=== PATIENT | female | born 1955 | race African-American/Black ===

== ENCOUNTER 2016-08-31 12:18 | Emergency (ER) | payer MEDICARE, OTHER ==
[~2016-08-31] VITALS: Ht 170.2 cm; Wt 82.1 kg
[~2016-08-31 12:18] MED LIST: ALBUTEROL SULF8.5 GM INH; ALPRAZOLAM0.5 MG PO; AMLODIPINE BESY10 MG ORAL; AMLODIPINE BESYL5 MG ORAL; AMOXICILLIN500 MG ORAL; ARMOUR THYROID120 MG PO; ATENOLOL50 MG ORAL; AZITHROMYCIN250 MG ORAL; CYCLOBENZAPRINE10 MG ORAL; HYDROCODON-ACE1 EA15 ORAL; IBUPROFEN600 MG ORAL; LISINOPRIL10 MG ORAL; LISINOPRIL5 MG ORAL; MELATONIN MC; MORPHINE IR15 MG ORAL; NORCO 10/3251 EA ORAL; NORCO 5-325 TA1 EACH PO; NORCO1 EA ORAL; PEPCID20 MG ORAL; PERCOCET 5-3251 EACH ORAL; PERCOCET 5-3251 EACH PO; SOMA350 MG PO; TESSALON PERLE100 MG ORAL; VALIUM5 MG PO; [UNRECOGNIZED DRUG - OTHER] TP
--- NOTE | 2016-08-31 13:05 | Emergency Room Report ---
History of Present Illness General Chief Complaint: Abdominal Pain Source: Patient Present Illness HPI 61-year-old female presents to emergency Department complaining of intermittent 6/10 in severity localized epigastric pain times one month. Patient states that she would experience the pain every few days however recently has become more frequent to daily. Patient reports that she also has a history of acid reflux and was told that she has an abdominal hernia. Patient denies erythema, consistent pain or increased temperature to palpation of the abdomen. Denies blood in stool, or dark tarry stools. Patient denies vomiting, fevers, chills, constipation or diarrhea. Patient does report intermittent nausea and acid reflux, and has to sleep with head significantly elevated to reduce reflux. denies cardiac hx, or edema. Denies CP, Palpitations, LOC, AMS, dizziness, Changes in Vision, Sensation, paresthesias, or a sudden severe headache. Allergies: Coded Allergies: No Known Allergies (Unverified , 10/04/12) Patient History Past Medical History: see triage record Past Surgical History: none Pertinent Family History: none Last Menstrual Period: menopause Now: No Immunizations: UTD Reviewed Nursing Documentation: PMH: Agreed, PSxH: Agreed Nursing Documentation-PMH Past Medical History: No History, Except For Hx Hypertension: Yes Hx Pacemaker: No Hx Asthma: Yes Hx COPD: No - Left foot fracture Hx Diabetes: No Hx Cancer: No Hx Gastrointestinal Problems: Yes Hx Dialysis: No History Of Psychiatric Problem: Yes - Manic depression, Bipolar Hx Cerebrovascular Accident: No Hx Seizures: No Review of Systems All Other Systems: negative except mentioned in HPI Physical Exam Vital Signs Date Time Temp Pulse Resp B/P Pulse Ox O2 Delivery O2 Flow Rate FiO2 08/31/16 12:28 98.2 76 16 192/96 96 Room Air Sp02 EP Interpretation: reviewed, abnormal - elevated BP- pt non-compliant with medications General Appearance: no apparent distress, alert, GCS 15, non-toxic Head: normocephalic, atraumatic Eyes: bilateral eye PERRL, bilateral eye normal inspection ENT: hearing grossly normal, normal pharynx, no angioedema, normal voice Neck: full range of motion, supple/symm/no masses Respiratory: chest non-tender, lungs clear, normal breath sounds, speaking full sentences Cardiovascular #1: regular rate, rhythm, no edema Gastrointestinal: normal bowel sounds, non tender, soft, no guarding, no pulsatile mass, no rebound, other - Negative [place] signs, Negative MacBurney' s sign, Negative Rosvigns Sign, Negative Psoas, No Peritoneal signs. No pulsatile masses, no palpable hernias, no erythema or evidence of infeciton or suspicion of gangrene/strangulation. normoactive bowel sounds. Rectal: deferred Genitourinary: normal inspection, no CVA tenderness Musculoskeletal: back normal, gait/station normal, normal range of motion, non- tender, no calf tenderness Neurologic: alert, oriented x3, responsive, motor strength/tone normal, sensory intact, speech normal Psychiatric: judgement/insight normal, memory normal, mood/affect normal, no suicidal/homicidal ideation Skin: normal color, no rash, warm/dry, well hydrated Lymphatic: no adenopathy Medical Decision Making PA Attestation Dr. Washburn is my supervising Physician whom patient management has been discussed with. Diagnostic Impression: Primary Impression: Abdominal pain Qualified Codes: R10.13 - Epigastric pain Additional Impressions: History of gastroesophageal reflux (GERD) History of abdominal hernia ER Course 61-year-old female presents to emergency Department complaining of intermittent 6/10 in severity localized epigastric pain times one month. Patient states that she would experience the pain every few days however recently has become more frequent to daily. Patient reports that she also has a history of acid reflux and was told that she has an abdominal hernia. Patient denies erythema, consistent pain or increased temperature to palpation of the abdomen. Denies blood in stool, or dark tarry stools. Patient denies vomiting, fevers, chills, constipation or diarrhea. Patient does report intermittent nausea and acid reflux. Pt has Pmhx of HTN, takes atenolol. is prescribed HCTZ however states she does not take it regularly as she does not like having to frequent the restroom. Ddx considered but are not limited to Diverticulitis, acute appy, diarrhea,UC, PUD, GE, pancreatitis, gallstone Vital signs:pt. is afebrile, BP is elevated. H&PE are most consistent with acid reflux, and possible ulcer, no evidence of strangulation, no evidence of irreducible hernia. ORDERS: CBC, CMP, lipase: ED INTERVENTIONS: -Zantac 150mg - Zofran 4mg. -GI Cocktail -PT states pain has completely subsided with above interventions. -D/w pt. to take all prescribed HTN medications as prescribed by her PCP, and encouraged her to keep a log of BP readings at home to bring with her to her follow up appt with her PCP. I do not suspect an emergent condition at this time. with current presentation pt. is stable for close outpatient follow up. DISCHARGE: At this time pt. is stable for d/c to home. Will provide printed patient care instructions, and any necessary prescriptions. Care plan and follow up instructions have been discussed with the patient prior to discharge. Labs Test 08/31/16 13:48 White Blood Count 6.7 K/UL (4.8-10.8) Red Blood Count 5.08 M/UL (4.20-5.40) Hemoglobin 15.4 G/DL (12.0-16.0) Hematocrit 46.1 % (37.0-47.0) Mean Corpuscular Volume 91 FL (80-99) Mean Corpuscular Hemoglobin 30.2 PG (27.0-31.0) Mean Corpuscular Hemoglobin Concent 33.3 G/DL (32.0-36.0) Red Cell Distribution Width 12.8 % (11.6-14.8) Platelet Count 263 K/UL (150-450) Mean Platelet Volume 9.8 FL (6.5-10.1) Neutrophils (%) (Auto) 56.5 % (45.0-75.0) Lymphocytes (%) (Auto) 36.7 % (20.0-45.0) Monocytes (%) (Auto) 3.7 % (1.0-10.0) Eosinophils (%) (Auto) 2.2 % (0.0-3.0) Basophils (%) (Auto) 0.9 % (0.0-2.0) Sodium Level 143 mEQ/L (135-145) Potassium Level 4.1 mEQ/L (3.4-4.9) Chloride Level 100 mEQ/L (98-107) Carbon Dioxide Level 26 mEQ/L (20-30) Anion Gap 17 (5-15) Blood Urea Nitrogen 17 mg/dL (7-23) Creatinine 0.9 mg/dL (0.5-0.9) Estimat Glomerular Filtration Rate > 60 mL/min (>60) Glucose Level 91 mg/dL (74-106) Calcium Level 9.8 mg/dL (8.6-10.2) Total Bilirubin 0.2 mg/dL (0.0-1.2) Aspartate Amino Transf (AST/SGOT) 27 U/L (5-40) Alanine Aminotransferase (ALT/SGPT) 27 U/L (3-33) Alkaline Phosphatase 81 U/L (35-104) Total Protein 7.4 g/dL (6.6-8.7) Albumin 4.5 g/dL (3.5-5.2) Globulin 2.9 g/dL Albumin/Globulin Ratio 1.5 (1.0-2.7) Lipase 30 U/L (< 60) Last Vital Signs Date Time Temp Pulse Resp B/P Pulse Ox O2 Delivery O2 Flow Rate FiO2 08/31/16 12:28 98.2 76 16 192/96 96 Room Air Disposition: HOME, SELF-CARE Condition: Stable Scripts Mag Hydrox/Al Hydrox/Simeth (ALUM-MAG HYDROXIDE-SIMETH LIQ) 360 Ml Oral.susp 10 ML PO BID, #360 ML Prov: Lucy Farmer 08/31/16 Ondansetron Odt* (ZOFRAN ODT*) 4 Mg Tab.rapdis 4 MG ORAL Q6H Y for Nausea & Vomiting, #20 TAB Prov: Lucy Farmer 08/31/16 Ranitidine Hcl* (ZANTAC*) 150 Mg Tablet 150 MG ORAL TWICE A DAY for 30 Days, #60 TAB Prov: Lucy Farmer 08/31/16 Patient Instructions: Abdominal Pain, Adult Additional Instructions: Take medications as directed. * Take previously prescribed BP medications exactly as prescribed * Follow up with PCP in 3-5 days, Recommend GI Specialist Consultation. -Take BP measurements at home and keep a log. Return sooner to ED if new symptoms occur, or current symptoms become worse. - Please note that this Emergency Department Report was dictated using [employer] technician technology software, occasionally this can lead to erroneous entry secondary to interpretation by the dictation equipment. Lucy Farmer Aug 31, 2016 13:05
[2016-08-31] MEDS ORDERED: Dicyclomine HCl 10mg/5ml oral soln ORAL ONE (13:15)
[2016-08-31] MEDS ORDERED: Mylanta II UD 30ml ORAL ONE (13:15)
[2016-08-31] MEDS ORDERED: Lidocaine 2% Visc 15ml soln ORAL ONE (13:15)
[2016-08-31 14:11] LABS: BASOPHILS % (AUTO) 0.9 % (0.0-2.0); EOSINOPHILS % (AUTO) 2.2 % (0.0-3.0); LYMPHOCYTES % (AUTO) 36.7 % (20.0-45.0); MEAN CORPUSCULAR HEMOGLOBIN 30.2 PG (27.0-31.0); MEAN CORPUSCULAR HGB CONC 33.3 G/DL (32.0-36.0); MEAN CORPUSCULAR VOLUME 91 FL (80-99); MEAN PLATELET VOLUME 9.8 FL (6.5-10.1); MONOCYTES % (AUTO) 3.7 % (1.0-10.0); NEUTROPHILS % (AUTO) 56.5 % (45.0-75.0); PLATELET COUNT 263 K/UL (150-450); RED BLOOD COUNT 5.08 M/UL (4.20-5.40); RED CELL DISTRIBUTION WIDTH 12.8 % (11.6-14.8); WHITE BLOOD COUNT 6.7 K/UL (4.8-10.8)
[2016-08-31 14:30] LABS: ALANINE AMINOTRANSFERASE 27 U/L (3-33); ALBUMIN/GLOBULIN RATIO 1.5 (1.0-2.7); ANION GAP 17 (5-15); ASPARTATE AMINO TRANSFERASE 27 U/L (5-40); CALCIUM 9.8 mg/dL (8.6-10.2); CARBON DIOXIDE 26 mEQ/L (20-30); CHLORIDE 100 mEQ/L (98-107); CREATININE 0.9 mg/dL (0.5-0.9); GLOMERULAR FILTRATION RATE > 60 mL/min (>60); HEMOLYSIS 104; LIPASE 30 U/L (< 60); POTASSIUM 4.1 mEQ/L (3.4-4.9); SODIUM 143 mEQ/L (135-145); TOTAL PROTEIN 7.4 g/dL (6.6-8.7)
[2016-08-31 14:42] VITALS: BP 180/107
[2016-08-31] MEDS ORDERED: ZOFRAN ODT4 MG ORAL (14:47)
[2016-08-31] MEDS ORDERED: ZANTAC150 MG ORAL (14:47)
[2016-08-31] MEDS ORDERED: ALUM-MAG HYDRO360 ML PO (14:47)
[2016-08-31 15:28] VITALS: BP 188/92
[2016-08-31 15:32] VITALS: BP 188/92
== END 2016-08-31 15:32 | disposition home or self-care (01) ==
LOC: EMR 13:00
DX: R10.13 Epigastric pain (principal); K21.9 Gastro-esophageal reflux disease without esophagitis; R11.0 Nausea; I10 Essential (primary) hypertension; J45.909 Unspecified asthma, uncomplicated
CPT/HCPCS: 36415; 80053; 83690; 85025; 99284

== ENCOUNTER 2016-10-28 08:47 | Emergency (ER) | payer MEDICARE, OTHER ==
[~2016-10-28] VITALS: Ht 170.2 cm; Wt 83.9 kg
[~2016-10-28 08:47] MED LIST changes: +ALUM-MAG HYDRO360 ML PO; +ZANTAC150 MG ORAL; +ZOFRAN ODT4 MG ORAL
[2016-10-28] MEDS ORDERED: DuoNeb 0.5-3(2.5)mg/3ml neb HHN ONE (09:15)
[2016-10-28] MEDS ORDERED: Ketorolac 60mg Inj IM ONE (09:15)
--- NOTE | 2016-10-28 09:15 | Emergency Room Report ---
History of Present Illness General Chief Complaint: Upper Respiratory Illness Source: Patient Present Illness HPI Patient is a 61-year-old female who presented after a several days of increased difficulty breathing. Patient had reportedly had lost her inhaler. Patient having increased cough with increased associated upper back pain. Patient states she has prior history of upper back pain and disc disease. The patient had not been having any fever. She reported having increased congestion. Allergies: Coded Allergies: No Known Allergies (Unverified , 10/04/12) Patient History Past Medical History: see triage record Reviewed Nursing Documentation: PMH: Agreed, PSxH: Agreed Nursing Documentation-PMH Hx Hypertension: Yes Hx Pacemaker: No Hx Asthma: Yes Hx COPD: No - Left foot fracture Hx Diabetes: No Hx Cancer: No Hx Gastrointestinal Problems: Yes Hx Dialysis: No Hx Cerebrovascular Accident: No Hx Seizures: No Review of Systems All Other Systems: negative except mentioned in HPI Physical Exam Vital Signs Date Time Temp Pulse Resp B/P Pulse Ox O2 Delivery O2 Flow Rate FiO2 10/28/16 08:55 98.2 85 20 143/91 100 Room Air General Appearance: well appearing, no apparent distress, alert, GCS 15, non- toxic Head: normocephalic, atraumatic ENT: hearing grossly normal, normal voice Neck: full range of motion, supple Respiratory: no respiratory distress, speaking full sentences Cardiovascular #1: normal peripheral pulses, regular rate, rhythm, no edema, no gallop, no JVD Gastrointestinal: normal bowel sounds, non tender, soft Musculoskeletal: normal inspection, digits/nails normal, no calf tenderness Neurologic: normal inspection, alert, oriented x3, responsive, normal gait Psychiatric: mood/affect normal Skin: no rash Medical Decision Making Diagnostic Impression: Primary Impression: Bronchitis ER Course Patient was sent for cough. Differential diagnosis included but was not limited to bronchitis, pneumonia, pulmonary embolism, pericarditis, asthma, foreign body. The x-ray imaging of the chest was ordered the patient's recent increased cough. EKG was was ordered due to patient's chest pain which seems pleuritic in nature Chest X-Ray Diagnostic Results EP Interpretation: No Findings: no consolidation, no effusion, no pneumothorax, no acute cardiopulmonary disease Number of Views: 1 Last Vital Signs Date Time Temp Pulse Resp B/P Pulse Ox O2 Delivery O2 Flow Rate FiO2 10/28/16 09:05 85 20 Room Air 10/28/16 08:55 98.2 143/91 100 Status: improved Disposition: HOME, SELF-CARE Condition: Stable Scripts Prednisone* (PREDNISONE*) 20 Mg Tablet 40 MG ORAL DAILY, #10 TAB Prov: George Leary 10/28/16 Albuterol Sulfate* (ALBUTEROL SULFATE MDI*) 8.5 Gm Hfa.aer.ad 2 PUFF INH Q4H Y for cough/wheezing, #1 EA 0 Refills Prov: George Leary 10/28/16 George Leary October 28, 2016 09:15
[2016-10-28 09:25] VITALS: BP 156/87
[2016-10-28 10:00] VITALS: BP 145/65
[2016-10-28] MEDS ORDERED: PREDNISONE20 MG ORAL (10:18)
[2016-10-28] MEDS ORDERED: ALBUTEROL SULF8.5 GM INH (10:18)
[2016-10-28] MEDS ORDERED: PredniSONE 20mg tab ORAL ONE (10:30)
[2016-10-28] MEDS ORDERED: Cyclobenzaprine 10mg Tab ORAL ONE (10:30)
[2016-10-28 10:45] VITALS: BP 145/65
--- NOTE | 2016-10-29 08:33 | Diagnostic Imaging Report ---
Indication: Shortness of breath Technique: Single portable AP view of the chest. Findings: Comparison: 10/20/2015 Osteophytes again noted in mid to lower thoracic spine. Surgical clips now noted intra-abdominal right upper quadrant. The bones and extra pulmonary soft tissues, cardiomediastinal silhouette, pulmonary vasculature and parenchyma, and pleural surfaces remain otherwise unremarkable. IMPRESSION: No evidence of acute cardiopulmonary disease, unchanged stable chronic changes as described.
--- NOTE | 2016-10-30 19:54 | Cardiology Report ---
APPROVED REPORT EKG Measurement Heart [id number] Normal sinus rhythm Possible Left atrial enlargement Septal infarct, age undetermined Abnormal ECG
== END 2016-10-28 10:45 | disposition home or self-care (01) ==
LOC: EMR 09:34
DX: J45.909 Unspecified asthma, uncomplicated (principal); I10 Essential (primary) hypertension
CPT/HCPCS: 71010; 93005; 94640; 94664; 96372; 99284; J7620

== ENCOUNTER 2017-08-22 10:21 | Emergency (ER) | payer MEDICARE, OTHER ==
[~2017-08-22] VITALS: Ht 170.2 cm; Wt 81.6 kg
[~2017-08-22 10:21] MED LIST changes: +PREDNISONE20 MG ORAL
[2017-08-22] MEDS ORDERED: KEFLEX500 MG ORAL (10:34)
--- NOTE | 2017-08-22 10:41 | Emergency Room Report ---
History of Present Illness General Chief Complaint: Pain Source: Patient, Medical Record Present Illness HPI 62-year-old female presents with possible bite to palmar aspect of right thumb distal tip that occurred 2 weeks ago. Patient does not recall seeing an insect or spider however she did feel a puncture at the time when she was cleaning around cabinets. Patient initially clean with peroxide. In the last couple days she noticed increased swelling and redness of the thumb and pain to the base of thumb. no history of diabetes or staph infection Allergies: Coded Allergies: No Known Allergies (Unverified , 10/04/12) Patient History Past Medical History: none Past Surgical History: none Pertinent Family History: none Social History: Denies: smoking, alcohol use, drug use Now: No Immunizations: UTD Reviewed Nursing Documentation: PMH: Agreed, PSxH: Agreed Nursing Documentation-PMH Past Medical History: No History, Except For Hx Hypertension: Yes Hx Pacemaker: No Hx Asthma: Yes Hx COPD: No - Left foot fracture Hx Diabetes: No Hx Cancer: No Hx Gastrointestinal Problems: Yes Hx Dialysis: No Hx Cerebrovascular Accident: No Hx Seizures: No Review of Systems All Other Systems: negative except mentioned in HPI Physical Exam Vital Signs Date Time Temp Pulse Resp B/P (MAP) Pulse Ox O2 Delivery O2 Flow Rate FiO2 08/22/17 10:27 97.4 87 18 131/83 98 Room Air 97.3 Sp02 EP Interpretation: reviewed, normal General Appearance: normal inspection, well appearing, no apparent distress, alert, GCS 15, non-toxic Head: normocephalic, atraumatic Eyes: bilateral eye PERRL, bilateral eye EOMI ENT: normal ENT inspection, hearing grossly normal, normal pharynx, no angioedema, normal voice, TMs + canals normal, uvula midline, moist mucus membranes Neck: normal inspection, full range of motion, supple, thyroid normal, no meningismus, no bony tend Respiratory: normal inspection, lungs clear, normal breath sounds, no rhonchi, no respiratory distress, no retraction, no accessory muscle use, no wheezing, speaking full sentences Cardiovascular #1: regular rate, rhythm, no edema, no JVD, normal capillary refill Gastrointestinal: normal inspection, normal bowel sounds, non tender, soft, no mass, no peritonitis, non-distended, no guarding, no hernia, no pulsatile mass Genitourinary: no CVA tenderness Musculoskeletal: normal inspection, back normal, normal range of motion, no calf tenderness, pelvis stable, Danna's Sign negative, other - Right thumb: puncture wound, healing. Some redness, swelling at distal tip. Neurologic: normal inspection, alert, oriented x3, responsive, setup operator III-XII nml as tested, motor strength/tone normal, cerebellar normal, normal gait, speech normal Psychiatric: normal inspection, judgement/insight normal, mood/affect normal, no suicidal/homicidal ideation, no delusions Skin: normal inspection, normal color, no rash Lymphatic: normal inspection, no adenopathy Medical Decision Making Diagnostic Impression: Primary Impression: Cellulitis and abscess of hand ER Course VSS, afebrile ?cellulitis Will DC with Abx ER course: Patient has remained stable during ED stay. Disposition: Patient is to be discharged to home. Prescriptions given are keflex Patient is instructed to follow up with their primary care doctor within 5 days. Strict return precautions discussed with patient such as fever, chills, worsening/severe pain, nausea, vomiting, which may indicate severe illness. Patient verbalizes understanding and agrees with plan. Please note that this Emergency Department Report was dictated using [employer] machine operator technology software, occasionally this can lead to erroneous entry secondary to interpretation by the dictation equipment Last Vital Signs Date Time Temp Pulse Resp B/P (MAP) Pulse Ox O2 Delivery O2 Flow Rate FiO2 08/22/17 10:27 97.4 87 18 131/83 98 Room Air 97.3 Status: improved Disposition: HOME, SELF-CARE Condition: Improved Scripts Cephalexin* (KEFLEX*) 500 Mg Capsule 500 MG ORAL Q6H for 7 Days, #28 CAP 0 Refills Prov: SOUMYA HARDEN M.D. 08/22/17 Patient Instructions: Cellulitis, [id number] SOUMYA HARDEN M.D. Aug 22, 2017 10:41
[2017-08-22 10:45] VITALS: BP 134/83
== END 2017-08-22 10:50 | disposition home or self-care (01) ==
LOC: EMR 10:39
DX: L03.011 Cellulitis of right finger (principal); J45.909 Unspecified asthma, uncomplicated; I10 Essential (primary) hypertension
CPT/HCPCS: 99283

== ENCOUNTER 2017-11-12 08:55 | Inpatient (IN) | payer MEDICARE, OTHER ==
[~2017-11-12] VITALS: Ht 170.2 cm; Wt 95.1 kg
[~2017-11-12 08:55] MED LIST changes: +KEFLEX500 MG ORAL
[2017-11-12] MEDS ORDERED: Ipratropium 0.02% Inh Soln 2.5ml UD HHN ONE (09:30)
[2017-11-12] MEDS ORDERED: Albuterol ud Inhalation HHN ONE ×2 (09:30→12:45)
--- NOTE | 2017-11-12 09:32 | Emergency Room Report ---
History of Present Illness General Chief Complaint: Edema Source: Patient Present Illness HPI The patient presents with 2 problems. She is mainly complaining about dyspnea and chest tightness that's been worsening over the last 2-3 days. She also has edema of her lower extremities that began October 24 when she took a airplane flight to [place]. It began on the left leg. She denies any pain per se. She's had some bruising there. She had a second trip and the swelling occurred bilaterally. She states the swelling somewhat better at this time. She denies any calf pain. She's had a mildly productive cough with some yellow phlegm recently. She denies any hemoptysis. She has chest pain but has tightness. In the past she's used an albuterol inhaler. When she tried to use it the last few days it's not worked as well for her. The chest tightness was present when she woke up this morning. The patient denies smoking. After having a client that smoked she had to go to [facility] several years ago and was prescribed an albuterol inhaler. She tried taking Advair and she didn't tolerate that. She specifically requests not to be treated with prednisone. The patient's had renal stones in the past. She denies any chronic renal damage recently. H/O HTN on Amlodipine. She takes gabapentin for chronic back pain. Allergies: Coded Allergies: No Known Allergies (Unverified , 10/04/12) Patient History Past Medical History: see triage record Past Surgical History: heriberto Social History: Denies: smoking Social History Narrative retired - has 4 cats and 2 dogs at home Last Menstrual Period: na Reviewed Nursing Documentation: PMH: Agreed; PSxH: Agreed Nursing Documentation-PMH Past Medical History: No History, Except For Hx Hypertension: Yes Hx Pacemaker: No Hx Asthma: Yes Hx Diabetes: No Hx Cancer: No Hx Gastrointestinal Problems: Yes Hx Dialysis: No Hx Cerebrovascular Accident: No Hx Seizures: No Review of Systems All Other Systems: negative except mentioned in HPI Physical Exam Vital Signs Date Time Temp Pulse Resp B/P (MAP) Pulse Ox O2 Delivery O2 Flow Rate FiO2 11/12/17 08:59 98.2 81 20 139/70 98 Room Air 98.2 Sp02 EP Interpretation: reviewed, normal General Appearance: well appearing, no apparent distress, GCS 15 Head: normocephalic Eyes: bilateral eye normal inspection, bilateral eye PERRL ENT: moist mucus membranes Neck: supple Respiratory: expiration - Minimal Cardiovascular #1: regular rate, rhythm, edema - bilateral - ankle and pedal Cardiovascular #2: 2+ radial (R) Gastrointestinal: normal inspection, normal bowel sounds, non tender, no mass, non-distended Musculoskeletal: back normal, gait/station normal, normal range of motion, no calf tenderness, Danna's Sign negative, other - minimal calf discomfort Neurologic: alert, oriented x3, grossly normal Psychiatric: mood/affect normal Skin: normal inspection, warm/dry Medical Decision Making Diagnostic Impression: Primary Impression: Chest tightness Additional Impressions: Bronchospasm Edema Qualified Codes: R60.9 - Edema, unspecified UTI (urinary tract infection) Qualified Codes: N30.00 - Acute cystitis without hematuria ER Course Patient presents with edema that began after inactivity/travel and chest tightness. Differential includes pulmonary embolus, DVT, acute coronary syndrome, bronchospasm, bronchitis amongst others. Based on vital signs pulmonary embolus is less likely however based on the history this is still a consideration. Evaluation needs to be with noninvasive vascular study and labs including x-ray. An EKG will be obtained. She will be treated with bronchodilators. Noninvasive vascular study negative for DVT. Chest x-ray no infiltrates. Labs with normal white count and renal function. Initial troponin is negative. Pyuria. Rocephin ordered. Suspicion is still high regarding possible pulmonary embolus. She was improved after initial breathing treatment however then began having dyspnea again. A CT angiogram is ordered. CT angiogram is negative for large bilateral pulmonary emboli for acute abnormality. Due to the nature of the chest tightness patient needs observation at least for echocardiogram and repeat troponins. Contacted Dr. Jerome for admission. Lasix given for edema. Most likely if echo normal, due to amlodipine. Consideration for Dyazide. Laboratory Tests Test 11/12/17 08:05 11/12/17 09:32 Urine Color Pale yellow Urine Appearance Clear Urine pH 7 (4.5-8.0) Urine Specific [place] 1.015 (1.005-1.035) Urine Protein 1+ (NEGATIVE) H Urine Glucose (UA) Negative (NEGATIVE) Urine Ketones Negative (NEGATIVE) Urine Occult Blood 3+ (NEGATIVE) H Urine Nitrite Negative (NEGATIVE) Urine Bilirubin Negative (NEGATIVE) Urine Urobilinogen Normal MG/DL (0.0-1.0) Urine Leukocyte Esterase 3+ (NEGATIVE) H Urine RBC 5-10 /HPF (0 - 2) H Urine WBC 15-20 /HPF (0 - 2) H Urine Squamous Epithelial Cells Few /LPF (NONE/OCC) Urine Bacteria Few /HPF (NONE) White Blood Count 5.6 K/UL (4.8-10.8) Red Blood Count 4.80 M/UL (4.20-5.40) Hemoglobin 14.9 G/DL (12.0-16.0) Hematocrit 43.0 % (37.0-47.0) Mean Corpuscular Volume 89 FL (80-99) Mean Corpuscular Hemoglobin 31.1 PG (27.0-31.0) H Mean Corpuscular Hemoglobin Concent 34.7 G/DL (32.0-36.0) Red Cell Distribution Width 12.7 % (11.6-14.8) Platelet Count 246 K/UL (150-450) Mean Platelet Volume 9.2 FL (6.5-10.1) Neutrophils (%) (Auto) 59.7 % (45.0-75.0) Lymphocytes (%) (Auto) 32.0 % (20.0-45.0) Monocytes (%) (Auto) 4.4 % (1.0-10.0) Eosinophils (%) (Auto) 2.8 % (0.0-3.0) Basophils (%) (Auto) 1.1 % (0.0-2.0) Prothrombin Time 9.9 SEC (9.30-11.50) Prothrombin Time INR 0.9 (0.9-1.1) PTT 25 SEC (23-33) Sodium Level 142 MMOL/L (136-145) Potassium Level 3.5 MMOL/L (3.5-5.1) Chloride Level 104 MMOL/L (98-107) Carbon Dioxide Level 29 MMOL/L (21-32) Anion Gap 9 mmol/L (5-15) Blood Urea Nitrogen 13 mg/dL (7-18) Creatinine 0.8 MG/DL (0.55-1.30) Estimate Glomerular Filtration Rate > 60 mL/min (>60) Glucose Level 151 MG/DL (74-106) H Calcium Level 9.0 MG/DL (8.5-10.1) Total Bilirubin 0.4 MG/DL (0.2-1.0) Aspartate Amino Transferase (AST) 21 U/L (15-37) Alanine Aminotransferase (ALT) 38 U/L (12-78) Alkaline Phosphatase 81 U/L (46-116) Total Creatine Kinase 97 U/L (26-308) Troponin I 0.000 ng/mL (0.000-0.056) Pro-B-Type Natriuretic Peptide 92 pg/mL (0-125) Total Protein 7.7 G/DL (6.4-8.2) Albumin 4.3 G/DL (3.4-5.0) Globulin 3.4 g/dL Albumin/Globulin Ratio 1.3 (1.0-2.7) EKG Diagnostic Results Rate: normal Rhythm: NSR ST Segments: no acute changes Rhythm Strip Diag. Results EP Interpretation: yes Rhythm: NSR, no PVC's, no ectopy Chest X-Ray Diagnostic Results Chest X-Ray Diagnostic Results : Chest X-Ray Ordered: Yes # of Views/Limited/Complete: 1 View Indication: Shortness of Breath EP Interpretation: Yes Interpretation: no consolidation, no effusion, no pneumothorax Impression: No acute disease Electronically Signed by: Electronically signed by Gurpreet Washburn MD CT/MRI/US Diagnostic Results CT/MRI/US Diagnostic Results : Imaging Test Ordered: CTA chest Impression no acute large pulmonary Status: improved Disposition: ADMITTED INPATIENT Condition: Serious Scripts Trimethoprim/Sulfamethoxazole 160/800* (BACTRIM DS TABLET*) 1 Each Tablet 1 TAB ORAL TWICE A DAY, #10 TAB Prov: Luis Alberto Jerome MD 11/13/17 Gurpreet Washburn M.D. Nov 12, 2017 09:32
[2017-11-12 09:41] LABS: BASOPHILS % (AUTO) 1.1 % (0.0-2.0); EOSINOPHILS % (AUTO) 2.8 % (0.0-3.0); HEMOGLOBIN 14.9 G/DL (12.0-16.0); MEAN CORPUSCULAR VOLUME 89 FL (80-99); MONOCYTES % (AUTO) 4.4 % (1.0-10.0); NEUTROPHILS % (AUTO) 59.7 % (45.0-75.0); PLATELET COUNT 246 K/UL (150-450); RED CELL DISTRIBUTION WIDTH 12.7 % (11.6-14.8); WHITE BLOOD COUNT 5.6 K/UL (4.8-10.8)
[2017-11-12 09:41] LABS: APPEARANCE,URINE CLEAR; BILIRUBIN, URINE NEGATIVE (NEGATIVE); COLOR,URINE PALE YELLOW; GLUCOSE, URINE (UA) NEGATIVE (NEGATIVE); KETONES,URINE NEGATIVE (NEGATIVE); LEUKOCYTE ESTERASE ,URINE 3+ (NEGATIVE); NITRITE,URINE NEGATIVE (NEGATIVE); PH,URINE 7 (4.5-8.0); PROTEIN,URINE 1+ (NEGATIVE); UROBILINOGEN,URINE NORMAL MG/DL (0.0-1.0)
[2017-11-12 09:56] LABS: ANION GAP 9 mmol/L (5-15); BLOOD UREA NITROGEN 13 mg/dL (7-18); CARBON DIOXIDE 29 MMOL/L (21-32); CHLORIDE 104 MMOL/L (98-107); CREATININE 0.8 MG/DL (0.55-1.30); INR 0.9 (0.9-1.1); POTASSIUM 3.5 MMOL/L (3.5-5.1); SODIUM 142 MMOL/L (136-145)
[2017-11-12 10:08] LABS: ALANINE AMINOTRANSFERASE 38 U/L (12-78); ALBUMIN 4.3 G/DL (3.4-5.0); ALBUMIN/GLOBULIN RATIO 1.3 (1.0-2.7); ALKALINE PHOSPHATASE 81 U/L (46-116); ASPARTATE AMINO TRANSFERASE 21 U/L (15-37); BILIRUBIN,TOTAL 0.4 MG/DL (0.2-1.0); CREATINE KINASE 97 U/L (26-308)
[2017-11-12] MEDS ORDERED: cefTRIAXone 1 GM in NS 55 ML IVPB ONE (10:15)
--- NOTE | 2017-11-12 11:42 | Diagnostic Imaging Report ---
Indication: Dyspnea Technique: One view of the chest Comparison: 10/28/2016 Findings: Lungs and pleural spaces are clear. Heart size is normal. No significant change Impression: No acute process
[2017-11-12] MEDS ORDERED: Isovue-370 150ml vial INJ PRN (12:45)
[2017-11-12 13:30] VITALS: BP 137/77
--- NOTE | 2017-11-12 14:00 | Diagnostic Imaging Report ---
ndication: Dyspnea and chest tightness that has been worsening over the last 2-3 days Technique: IV administration nonionic contrast. Spiral acquisitions obtained from the lung bases to the lung apices. Multiplanar and 3-D reconstructions were generated. Total dose length product 828.38 mGycm. CTDIvol(s) 27.39 mGy. Dose reduction achieved using automated exposure control Comparison: none Findings: No intraluminal filling defects or other findings to suggest acute pulmonary embolus demonstrated. No evidence of pulmonary arterial dilatation or right ventricular dilatation. No evidence of thoracic aortic aneurysm or dissection. There is normal variant anatomy of the aortic arch, with the left vertebral artery coming directly off of the aortic arch. The heart is normal in size, but is evidence of left ventricular muscular hypertrophy. Minimal parenchymal scarring is seen in both lung apices. There is some atelectasis or scarring in the lingula. No infiltrates, effusions, congestion, masses, or nodules demonstrated. No pericardial effusion. No mediastinal or hilar mass or adenopathy. No axillary or chest wall mass or adenopathy. The bones are unremarkable except for mild degenerative spondylosis changes. The esophagus is unremarkable. Included upper abdominal anatomy demonstrates cholecystectomy clips. Impression: No evidence of acute pulmonary embolus or other acute thoracic vascular pathology. No other significant abnormality Minimal biapical scarring and left lingular scarring or atelectasis Incidental findings as noted, including evidence of prior cholecystectomy, degenerative thoracic spondylosis The CT scanner at [facility] is accredited by the [employer] and the scans are performed using protocols designed to limit radiation exposure to as low as reasonably achievable to attain images of sufficient resolution adequate for diagnostic evaluation.
[2017-11-12] MEDS ORDERED: GABAPENTIN600 MG ORAL (14:07)
[2017-11-12] MEDS ORDERED: VALIUM10 MG ORAL (14:07)
--- NOTE | 2017-11-12 15:17 | History & Physical ---
History and Physical History & Physicial dict edema possible CF vs amlodipine cough due to NATHALIE HTN UTI Luis Alberto Jerome MD Nov 12, 2017 15:17
[2017-11-12 15:30] VITALS: BP 131/67
[2017-11-12] MEDS ORDERED: Cyclobenzaprine 10mg Tab ORAL PRN (15:30)
[2017-11-12 17:30] VITALS: BP 131/67
[2017-11-12] MEDS ORDERED: Norco 5mg/325mg tab ORAL PRN (18:00)
[2017-11-12] MEDS ORDERED: CALCIUM600 M1 PO (18:13)
[2017-11-12] MEDS ORDERED: GINGER250 MG PO (18:13)
[2017-11-12] MEDS ORDERED: FOLIC ACID0.4 MG ORAL (18:13)
[2017-11-12] MEDS ORDERED: WOMEN'S DAILY1 EACH PO (18:13)
[2017-11-12] MEDS ORDERED: PROMETHAZI6.25 MG/1 ORAL (18:13)
[2017-11-12] MEDS ORDERED: Albuterol 90mcg Inhaler 8gm INH PRN (19:00)
[2017-11-12 20:00] VITALS: BP 118/66
--- NOTE | 2017-11-12 21:00 | History and Physical Report ---
DATE OF ADMISSION: 11/12/2017 CHIEF COMPLAINT: Swelling and short of breath. HISTORY OF PRESENT ILLNESS: The patient states over the past several weeks, she has been having swelling in her legs. For the past two days, she noted worsening swelling and some shortness of breath. She came to the emergency department and was noted to have some edema. A CT angiogram was negative and laboratory studies were not remarkable. She had signs of urinary infection and admission was recommended. Past history, the patient has had some mild productive cough and yellow sputum. She wakes up every night coughing. She has no hemoptysis or chest pain. Occasionally, she uses an inhaler. She is not a cigarette smoker. PAST MEDICAL HISTORY: Includes hypertension and possibly hyperlipidemia. She had cholecystectomy and kidney stones in the past. ALLERGIES: None. MEDICATIONS: Include lisinopril, atenolol, amlodipine, and gabapentin for chronic back pain. REVIEW OF SYSTEMS: Otherwise unremarkable. PHYSICAL EXAMINATION: GENERAL: The patient is alert and responds appropriately. VITAL SIGNS: Normal. Blood pressure is marginally elevated. She is overweight. SKIN: The skin is warm and dry. HEENT: The head is normocephalic. NECK: No jugular venous distention. CHEST: Clear. CARDIAC: Rhythm is regular without murmur or gallop. ABDOMEN: Soft, nontender. Liver and spleen not enlarged. EXTREMITIES: No clubbing, cyanosis, or edema. Earlier the emergency room physician did find bilateral ankle edema. LABORATORY AND DIAGNOSTIC DATA: Chest x-ray and CT angiogram of the chest were negative. Urinalysis shows 15-20 white cells. Hematology is unremarkable. Chemistry shows blood sugar 151, otherwise unremarkable. Coagulation is normal. IMPRESSIONS: 1. Dyspnea, possible congestive heart failure. 2. Ankle edema, possibly due to amlodipine or heart failure. 3. Hypertension. 4. UTI. 5. Cough due to NATHALIE inhibitor. PLAN: The patient's medications will be adjusted accordingly. An echocardiogram will be obtained. Early discharge is anticipated. Luis Alberto Jerome M.D. DR: Faviola JOB#: [id number] CC:
[2017-11-13] VITALS: BP 131/56
[2017-11-13 04:00] VITALS: BP 129/71
[2017-11-13 08:00] VITALS: BP 135/72
[2017-11-13] MEDS ORDERED: BACTRIM DS TAB1 EAC1 ORAL (08:32)
[2017-11-13 08:38] VITALS: BP 135/72
[2017-11-13] MEDS ORDERED: Losartan 50mg tab ORAL SCH (09:00)
[2017-11-13] MEDS ORDERED: COZAAR50 MG ORAL (09:45)
--- NOTE | 2017-11-13 13:57 | Cardiology Report ---
APPROVED REPORT EXAM: Two-dimensional and M-mode echocardiogram with Doppler and color Doppler. INDICATION Hypertension/HCVD M-Mode DIMENSIONS IVSd1.2 (0.7-1.1cm)Left Atrium (MM)3.1 (1.6-4.0cm) LVDd4.4 (3.5-5.6cm)Aortic Root3.9 (2.0-3.7cm) PWd1.5 (0.7-1.1cm)Aortic Cusp Exc.1.8 (1.5-2.0cm) IVSs1.7 cm LVDs2.7 (2.5-4.0cm) PWs2.2 cm Technically difficult study due to poor acoustical windows. Normal left ventricular chamber size, systolic function and wall motion to extent visualized. Left ventricular ejection fraction estimated to be 60-65 %. Mild left ventricular hypertrophy by 2-D. No evidence of pericardial effusion. All other cardiac chamber sizes are within normal limits. Mildly Focal aortic valve sclerosis with adequate cusp excursion. Mildly Thickened mitral valve leaflets with normal excursion. Mildly Mitral annulus and aortic root calcification. Pulmonic valve not well visualized. Normal tricuspid valve structure. IVC at normal size with physiologic collapse. A color flow and spectral Doppler study was performed and revealed: No aortic regurgitation. Trace mitral regurgitation. Mitral diastolic velocities suggest reduced left ventricular relaxation c/w mild LV diastolic dysfunction (Grade I ). Mild tricuspid regurgitation. Tricuspid systolic velocities suggests peak right ventricular systolic pressure of 20 mmHg No Pulmonic regurgitation present.
--- NOTE | 2017-11-14 07:06 | Discharge Summary ---
Discharge Summary Discharge Summary _ DATE OF ADMISSION: 11/12/2017 DATE OF DISCHARGE: 11/13/2017 BRIEF HOSPITAL COURSE: Patient is a 62-year-old female, who presented to the hospital complaining of swelling and shortness of breath. Patient stated over the past several weeks, she was having swelling in the legs. For the past 2 days prior to admission, she noted worsening of swelling accompanied with shortness of breath. She presented to the emergency department and was noted to have edema. She was complaining of mild productive cough with yellow sputum. She woke up every night coughing. She denied hemoptysis or chest pain. She used her inhalers occasionally. She is not a cigarette smoker. She has medical history significant for hypertension and possibly hyperlipidemia. She had cholecystectomy and kidney stones in the past. On evaluation at ED, laboratory studies were unremarkable. Urinalysis with 15- 20 white cells. She was given ceftriaxone. Chest x-ray showed no acute process. Chest CTA did not show any evidence of acute pulmonary embolus or other thoracic vascular pathology. She was admitted under observation for evaluation of dyspnea, possible congestive heart failure. Medications were adjusted. Cough possibly due to NATHALIE inhibitor. Ankle edema possibly due to amlodipine or heart failure. She had an echocardiogram done, ejection fraction was 60-65% with normal left ventricular size function and wall motion. There was no evidence of pericardial effusion. No aortic regurgitation, right ventricular systolic pressure 20 mmHg. BNP was 92, troponin was negative. Venous duplex of lower extremity was negative for DVT. She was resumed on her thyroid medications. She was given losartan and atenolol. She was given albuterol nebulizer treatments. Preliminary urine culture showed mixed gram-positive organisms. Vitals were stable, she was saturating well on room air. She was eventually cleared for discharge. FINAL DIAGNOSES: Dyspnea Ankle edema Hypertension Urinary tract infection Cough due to NATHALIE inhibitor DISPOSITION: Patient was discharged home. I have been assigned to dictate discharge summary on this account, and I was not involved in the patient's management. Ania Shi NP Nov 14, 2017 07:06
== END 2017-11-13 09:25 | disposition home or self-care (01) | DRG 204 ==
LOC: EMR 09:43 → 2E 13:50 → EDBEDREQ 17:42
DX: R06.02 Shortness of breath (principal); N39.0 Urinary tract infection, site not specified; R60.9 Edema, unspecified; R05 Cough; T46.4X5A Adverse effect of angiotensin-converting-enzyme inhibitors, initial encounter; Y92.019 Unspecified place in single-family (private) house as the place of occurrence of the external cause; Z90.49 Acquired absence of other specified parts of digestive tract; I10 Essential (primary) hypertension; Z87.442 Personal history of urinary calculi
CPT/HCPCS: 36415; 71045; 71275; 80053; 81003; 82550; 83880; 84484; 85025; 85610; 85730; 87086; 93005; 93306; 93970; 94640; 94664; 99285

== ENCOUNTER 2018-04-26 15:20 | Emergency (ER) | payer OTHER ==
[~2018-04-26] VITALS: Ht 171.4 cm; Wt 89.4 kg
[~2018-04-26 15:20] MED LIST changes: +BACTRIM DS TAB1 EAC1 ORAL; +CALCIUM600 M1 PO; +COZAAR50 MG ORAL; +FOLIC ACID0.4 MG ORAL; +GABAPENTIN600 MG ORAL; +GINGER250 MG PO; +PROMETHAZI6.25 MG/1 ORAL; +VALIUM10 MG ORAL; +WOMEN'S DAILY1 EACH PO
--- NOTE | 2018-04-26 15:58 | Emergency Room Report ---
History of Present Illness General Chief Complaint: Pain Source: Medical Record Present Illness HPI 62-year-old female presents to the emergency department complaining of 10 out of 10 in severity exacerbation of chronic pain after she which she believes possible fall Saturday. Patient denies saddle anesthesia. Patient reports history of several herniated disc issues. Patient states that her pain is greatly exacerbated and she is having a difficult time walking, standing or finding a position of comfort. Patient states she has not been able to find any relieving factors. Patient denies recent spinal procedures, fevers, chills , history of cancer or weakness in either of the lower extremities.Denies numbness tingling or loss of sensation or gross motor movements of the extremities, incontinence of bowel or bladder. Denies CP, Palpitations, LOC, AMS , dizziness, Changes in Vision, weakness or a sudden severe headache. PMhx HTN and hypothyroid. pt. reports that due to chronic back injury she is disabled. Ambulates with a cane. Allergies: Coded Allergies: AMLODIPINE (Verified Allergy, Unknown, 04/26/18) LISINOPRIL (Verified Allergy, Unknown, 04/26/18) Patient History Past Medical History: see triage record Past Surgical History: none Pertinent Family History: none Last Menstrual Period: Post menopausal Now: No Reviewed Nursing Documentation: PMH: Agreed; PSxH: Agreed Nursing Documentation-PMH Past Medical History: No History, Except For Hx Cardiac Problems: Yes - Hypothyroidism Hx Hypertension: Yes Hx Pacemaker: No Hx Asthma: Yes Hx COPD: No Hx Diabetes: No Hx Cancer: No Hx Gastrointestinal Problems: No Hx Dialysis: No Hx Cerebrovascular Accident: No Hx Seizures: No Review of Systems All Other Systems: negative except mentioned in HPI Physical Exam Vital Signs Date Time Temp Pulse Resp B/P (MAP) Pulse Ox O2 Delivery O2 Flow Rate FiO2 04/26/18 15:26 97.9 80 24 199/110 99 Room Air Sp02 EP Interpretation: reviewed, normal General Appearance: alert, GCS 15, non-toxic, mild distress Head: normocephalic, atraumatic Eyes: bilateral eye normal inspection, bilateral eye PERRL ENT: hearing grossly normal, normal voice Neck: full range of motion Respiratory: lungs clear, normal breath sounds, speaking full sentences Cardiovascular #1: regular rate, rhythm Gastrointestinal: non tender, soft Rectal: deferred Genitourinary: normal inspection, no CVA tenderness Musculoskeletal: back normal, normal range of motion, other - ambulating with cane, tender - Tenderness to palpation to paraspinal muscles of the lower back with some midline tenderness and Left upper hip ttp laterally. contusion on left hip. Neurologic: alert, oriented x3, responsive, motor strength/tone normal, sensory intact, speech normal, grossly normal Psychiatric: judgement/insight normal Skin: no rash, warm/dry, well hydrated, other - contusion to lateral left hip. Medical Decision Making PA Attestation Dr. dawson is my supervising Physician whom patient management has been discussed with. Diagnostic Impression: Primary Impression: Acute exacerbation of chronic low back pain Additional Impression: left hip contusion ER Course 62-year-old female presents to the emergency department complaining of 10 out of 10 in severity exacerbation of chronic pain after she which she believes possible fall Saturday. Patient denies saddle anesthesia. Patient reports history of several herniated disc issues. Patient states that her pain is greatly exacerbated and she is having a difficult time walking, standing or finding a position of comfort. Patient states she has not been able to find any relieving factors. Patient denies recent spinal procedures, fevers, chills , history of cancer or weakness in either of the lower extremities.Denies numbness tingling or loss of sensation or gross motor movements of the extremities, incontinence of bowel or bladder. Denies CP, Palpitations, LOC, AMS , dizziness, Changes in Vision, weakness or a sudden severe headache. PMhx HTN and hypothyroid. pt. reports that due to chronic back injury she is disabled. Ambulates with a cane. Ddx considered: epidural abscess, fracture, sprain/strain, meningitis, spinal chord injury, sciatica, cauda equina, Pyelonephritis, renal calculi just to name a few. Vital signs: elevated initial BP reading during ED visit. Pt. is afebrile with no signs of infection No new symptoms, and denies recent trauma. No saddle anesthesia noted, Pt. denies incontinence Neurovascular is intact ROM is limited due to pain * Tenderness to palpation to paraspinal muscles of the lower back with some midline tenderness. *Pt. describes pain today as moderate and radiates across the lower back. and left hip. ORDERS: Pt. declines imaging INTERVENTIONS: - Lidoderm - MOrphine 4mg IM -Robaxin 750mg -Pt. reports her pain has improved moderately. pt. states she is able to go in to see her ortho doctor Saturday. Bp has also improved. D/W Pt. that for further pain management is it recommended to consult PCP or a Chronic Pain management doctor. A provider who can safely prescribe controlled substances with close follow up. DISCHARGE: At this time pt. is stable for d/c to home. Will provide printed patient care instructions, and any necessary prescriptions. Care plan and follow up instructions have been discussed with the patient prior to discharge. Last Vital Signs Date Time Temp Pulse Resp B/P (MAP) Pulse Ox O2 Delivery O2 Flow Rate FiO2 04/26/18 15:26 97.9 80 24 199/110 99 Room Air Disposition: HOME, SELF-CARE Condition: Stable Scripts Acetaminophen* (TYLENOL EXTRA STRENGTH*) 500 Mg Tablet 500 MG ORAL Q6H, #20 TAB 0 Refills Prov: Lucy Farmer 04/26/18 Methocarbamol* (ROBAXIN-750*) 750 Mg Tablet 750 MG PO QID, #28 TAB 0 Refills Prov: Lucy Farmer 04/26/18 Patient Instructions: Back Pain, Adult, [id number] Additional Instructions: Take medications as directed. Follow up with a Primary Care Provider in 3-5 days, even if your symptoms have resolved. --Please review list of primary care clinics, if you do not already have a primary care provider Return sooner to ED if new symptoms occur, or current symptoms become worse. Do not drink alcohol, drive, or operate heavy machinery while taking Robaxin ( Muscle Relaxers) as this may cause drowsiness. - Please note that this Emergency Department Report was dictated using [employer]elo[employer] assistant technology software, occasionally this can lead to erroneous entry secondary to interpretation by the dictation equipment. Lucy Farmer Apr 26, 2018 15:57
[2018-04-26] MEDS ORDERED: Morphine Sulfate 4mg/ml Inj (IV/IM USE ONLY) IM ONE (16:00)
[2018-04-26] MEDS ORDERED: Methocarbamol 750mg tab ORAL ONE (16:00)
[2018-04-26 16:49] VITALS: BP 161/85
[2018-04-26] MEDS ORDERED: ROBAXIN-750750 MG PO (17:33)
[2018-04-26] MEDS ORDERED: TYLENOL EXTRA500 MG ORAL (17:33)
[2018-04-26 17:54] VITALS: BP 161/85
== END 2018-04-26 17:55 | disposition home or self-care (01) ==
LOC: EMR 16:01
DX: M54.5 Low back pain (principal); G89.29 Other chronic pain; S70.02XA Contusion of left hip, initial encounter; X58.XXXA Exposure to other specified factors, initial encounter; Y92.9 Unspecified place or not applicable; Z88.8 Allergy status to other drugs, medicaments and biological substances; E03.9 Hypothyroidism, unspecified; J45.909 Unspecified asthma, uncomplicated
CPT/HCPCS: 96372; 99283; J2270

== ENCOUNTER 2018-06-27 07:44 | Emergency (ER) | payer OTHER ==
[~2018-06-27] VITALS: Ht 170.2 cm; Wt 90.7 kg
[~2018-06-27 07:44] MED LIST changes: +ROBAXIN-750750 MG PO; +TYLENOL EXTRA500 MG ORAL
[2018-06-27 08:11] VITALS: BP 140/85
--- NOTE | 2018-06-27 08:12 | Emergency Room Report ---
History of Present Illness General Chief Complaint: Pain Source: Patient Present Illness HPI 62yo F p/w R elbow pain x 2 weeks, moderate achy, radiating down forearm, no trauma, reports pain along medial aspect elbow with associated numbness along ulnar aspect of forearm and hand Denies f/c, injury, weakness, neck pain; has not tried any interventions Allergies: Coded Allergies: AMLODIPINE (Verified Allergy, Unknown, 04/26/18) LISINOPRIL (Verified Allergy, Unknown, 04/26/18) Patient History Past Medical History: see triage record Now: No Reviewed Nursing Documentation: PMH: Agreed; PSxH: Agreed Nursing Documentation-PMH Past Medical History: No History, Except For Hx Cardiac Problems: Yes - Hypothyroidism Hx Hypertension: Yes Hx Pacemaker: No Hx Asthma: Yes Hx COPD: No Hx Diabetes: No Hx Cancer: No Hx Gastrointestinal Problems: No Hx Dialysis: No Hx Cerebrovascular Accident: No Hx Seizures: No Review of Systems Constitutional: Denies: fever Eye: Denies: acuity changes Respiratory: Denies: cough, shortness of breath Cardiovascular: Denies: chest pain Gastrointestinal: Denies: nausea, vomiting Skin: Denies: rash Neurological: Denies: headache Physical Exam Vital Signs Date Time Temp Pulse Resp B/P (MAP) Pulse Ox O2 Delivery O2 Flow Rate FiO2 06/27/18 07:48 76 18 140/85 97 Room Air Sp02 EP Interpretation: reviewed, normal General Appearance: normal inspection, well appearing, no apparent distress, alert, non-toxic Head: normocephalic, atraumatic Eyes: bilateral eye PERRL, bilateral eye EOMI ENT: hearing grossly normal, normal voice Neck: full range of motion, supple, thyroid normal, no meningismus, no bony tend Respiratory: lungs clear, normal breath sounds, no rhonchi, no respiratory distress, no retraction, no accessory muscle use, speaking full sentences Cardiovascular #1: normal inspection, normal peripheral pulses, regular rate, rhythm, no edema, no gallop, no JVD, no murmur, no rub Cardiovascular #2: 2+ radial (R), 2+ radial (L) Gastrointestinal: non tender, soft, no mass Genitourinary: no CVA tenderness Musculoskeletal: no calf tenderness Neurologic: alert, oriented x3, responsive, supervisor capacitor processing III-XII nml as tested, motor strength/tone normal, sensory intact, normal gait Psychiatric: normal inspection, judgement/insight normal, mood/affect normal Skin: no rash, warm/dry Lymphatic: normal inspection, no adenopathy Medical Decision Making Diagnostic Impression: Primary Impression: Ulnar nerve entrapment at elbow ER Course patient with symptoms c/w ulnar nerve entrapment neuropathy, exam normal despite numbness sensation. no weakness, no skin changes, no brachial adenopathy. Will dc with reassurance, nsaids, f/u with PMD for possible ortho/ hand referral since tiny old fx seen on xr, which patient reports may be 2/2 remote fall many months ago. does not want any Rx. Other X-Ray Diagnostic Results Other X-Ray Diagnostic Results : X-Ray ordered: R elbow # of Views/Limited Vs Complete: 2 View Indication: Pain EP Interpretation: Yes Interpretation: no dislocation, no soft tissue swelling, other - +old appearing fx at medial malleolus Impression: No acute disease Electronically Signed by: Howard Munoz MD Last Vital Signs Date Time Temp Pulse Resp B/P (MAP) Pulse Ox O2 Delivery O2 Flow Rate FiO2 06/27/18 07:48 76 18 140/85 97 Room Air Disposition: HOME, SELF-CARE Condition: Stable HOWARD MUNOZ M.D Jun 27, 2018 08:12
--- NOTE | 2018-06-27 08:17 | NUR ---
ED Nurse Note:pt. came with c/o right shoulder/elbow pain, no injury reported, pain meds were given
[2018-06-27 09:23] VITALS: BP 140/85
--- NOTE | 2018-06-27 09:24 | NUR ---
ED Nurse Note:pt. was cleared for d/c by ER MD she received d/c instructions and left ER with steady gait
--- NOTE | 2018-06-27 11:50 | Diagnostic Imaging Report ---
Indication: Pain Findings: 3 views of the right elbow were obtained. No obvious acute fractures, malalignment, erosions or periostitis are identified. Bone mineralization is within normal limits. There is a osteophyte formation involving the coronoid process. Soft tissues are unremarkable. Impression: No acute injury. Limited evaluation. Mild arthrosis
== END 2018-06-27 09:25 | disposition home or self-care (01) ==
LOC: EMR 08:35
DX: G56.21 Lesion of ulnar nerve, right upper limb (principal); I10 Essential (primary) hypertension; E03.9 Hypothyroidism, unspecified
CPT/HCPCS: 99283

== ENCOUNTER 2018-08-28 05:56 | Emergency (ER) | payer OTHER ==
[~2018-08-28] VITALS: Ht 170.2 cm; Wt 90.7 kg
--- NOTE | 2018-08-28 06:20 | NUR ---
ED Nurse Note: pt walked in c/o bodyache, pt states she fell foward on saturday night when she was walking and tripped over something, pt c/o gricel wrist arms, trunk gricel knee pain. denies head injury. CMS intact BLE/BUE, ambulatory w/ steady gait, will cont monitor.
[2018-08-28 06:29] VITALS: BP 150/85
--- NOTE | 2018-08-28 06:43 | Emergency Room Report ---
History of Present Illness General Chief Complaint: Multiple Trauma/Fall Present Illness HPI Patient is a 63-year-old female presented after increased generalized pain. Patient reports having pain to both upper extremities after a fall approximately 2 days ago. Patient states she tripped and subsequently landed on her outstretched hands bilaterally. She reports of increased pain to her chest as well as her upper back. She reports having some pain to the left wrist as well as to the right elbow. Patient denies any loss of consciousness. (George Leary MD) Allergies: Coded Allergies: AMLODIPINE (Verified Allergy, Unknown, 04/26/18) LISINOPRIL (Verified Allergy, Unknown, 04/26/18) Patient History Past Medical History: see triage record Last Menstrual Period: 15 years ago Now: No : 3 Para: 3 Reviewed Nursing Documentation: PMH: Agreed; PSxH: Agreed (George Leary MD) Nursing Documentation-PMH Hx Cardiac Problems: Yes - Hypothyroidism Hx Hypertension: Yes Hx Pacemaker: No Hx Asthma: Yes Hx COPD: No Hx Diabetes: No Hx Cancer: No Hx Gastrointestinal Problems: No Hx Dialysis: No Hx Cerebrovascular Accident: No Hx Seizures: No (George Leary MD) Review of Systems All Other Systems: negative except mentioned in HPI (George Leary MD) Physical Exam Vital Signs Date Time Temp Pulse Resp B/P (MAP) Pulse Ox O2 Delivery O2 Flow Rate FiO2 08/28/18 05:59 98.1 80 16 150/85 97 Room Air Sp02 EP Interpretation: reviewed, normal General Appearance: normal inspection, well appearing, no apparent distress, alert, GCS 15, obese, Chronically Ill Head: atraumatic ENT: normal ENT inspection, hearing grossly normal, normal voice Neck: normal inspection, full range of motion, supple, no bony tend Respiratory: normal inspection, normal breath sounds, no retraction, wheezing Cardiovascular #1: regular rate, rhythm, no edema Gastrointestinal: normal inspection, normal bowel sounds, non tender, soft, no guarding, no hernia Genitourinary: no CVA tenderness Musculoskeletal: normal inspection, back normal, normal range of motion Neurologic: normal inspection, alert, oriented x3, responsive, health safety specialist III-XII nml as tested, speech normal Psychiatric: normal inspection, judgement/insight normal, mood/affect normal Skin: normal inspection, normal color, no rash (George Leary MD) Medical Decision Making Diagnostic Impression: Primary Impression: Contusion ER Course Presented for bilateral upper extremity pain. Differential diagnosis include was not limited to fracture, dislocation, sprain, arthritis among others. Patient has a benign exam and does not appear to require any laboratory testing at this time.. X-ray of upper extremities were ordered. Patient given breathing treatment due to what appears to be some bronchitis. Patient was given Tylenol for pain. Patient was endorsed to Dr. Rehman pending x-rays (George Leary MD) ER Course Please refer to the initial note for the history exam and presentation At this time review of the imaging reveals no obvious acute fractures or other abnormality Patient reports that Tylenol does not help significantly and therefore patient was given IM injection of Toradol On review of CURES patient does get multiple medications from a single provider including benzodiazepine and hydrocodone She is referred to this physician for continued prescriptions and is otherwise stable for close outpatient follow-up (Saurabh Rehman DO) Chest X-Ray Diagnostic Results Chest X-Ray Diagnostic Results : Chest X-Ray Ordered: Yes # of Views/Limited/Complete: 1 View Indication: Chest Pain EP Interpretation: Yes Interpretation: no consolidation, no effusion, no pneumothorax Impression: No acute disease Electronically Signed by: Saurabh Rehman DO (Saurabh Rehman DO) Other X-Ray Diagnostic Results Other X-Ray Diagnostic Results #1: X-Ray ordered: Right elbow # of Views/Limited Vs Complete: 3 View Indication: Pain EP Interpretation: Yes Interpretation: no dislocation, no soft tissue swelling, no fractures Impression: No acute disease - No change from previous Electronically Signed by: Saurabh Rehman DO Other X-Ray Diagnostic Results #2: X-Ray ordered: Left wrist # of Views/Limited Vs Complete: 4 View Indication: Pain EP Interpretation: Yes Interpretation: no dislocation, no soft tissue swelling, no fractures Impression: No acute disease Electronically Signed by: Saurabh Rehman DO (Saurabh Rehman DO) Last Vital Signs Date Time Temp Pulse Resp B/P (MAP) Pulse Ox O2 Delivery O2 Flow Rate FiO2 08/28/18 06:29 80 16 Room Air 08/28/18 06:29 98.1 150/85 97 (George Leary MD) Status: improved (Saurabh Rehman DO) Disposition: HOME, SELF-CARE Condition: Improved Additional Instructions: Patient is provided with the discharge instructions notified to follow up with primary doctor in the next 2-3 days otherwise return to the er with any worsening symptoms. Please note that this report is being documented using DRAGON technology. This can lead to erroneous entry secondary to incorrect interpretation by the dictating instrument. George Leary MD Aug 28, 2018 06:43 Saurabh Rehman DO Aug 28, 2018 07:45
[2018-08-28] MEDS ORDERED: Albuterol/Ipratropium 3ml neb HHN ONE (06:45)
--- NOTE | 2018-08-28 06:46 | NUR ---
ED Nurse Note: pt refused tylenol stating it doesn't work for pt, ERMD notified.
--- NOTE | 2018-08-28 07:27 | NUR ---
HAND-OFF: Report given to LUISA Gutierrez and endorsed care. no changes in condition. xray at the bedside.
[2018-08-28] MEDS: Ketorolac 60mg Inj IM ONE ×2 (07:50→08:08)
--- NOTE | 2018-08-28 08:00 | NUR ---
ED Nurse Note: Provided education on Toradol injection including a copy of information sheet from clinical pharmacology.
[2018-08-28 08:15] VITALS: BP 149/78
--- NOTE | 2018-08-28 08:16 | NUR ---
ED Nurse Note: Toradol IM given to right gluteus preethi as requested instead of vastus lateralis. Patient is being discharged from medical care. D/C instruction and prescrption given. Patient verbalized understandng of it. All questions were answered.
--- NOTE | 2018-08-28 12:46 | Diagnostic Imaging Report ---
Indication: Dyspnea Comparison: 11/12/2017 A single view chest radiograph was obtained. Findings: Cardiomediastinal appearance is within normal limits for age. The lungs are clear. Pulmonary vascularity is appropriate. The diaphragmatic contour is smooth and costophrenic angles are sharp. No pleural effusions are identified. The bones are unremarkable. Impression: No acute findings
--- NOTE | 2018-08-28 12:46 | Diagnostic Imaging Report ---
Indication: Right elbow pain and trauma Findings: 3 views of the right elbow were obtained. No acute fractures, malalignment, erosions or periostitis are identified. Bone mineralization is within normal limits. Soft tissues are unremarkable. Minimal coronoid process osteophyte noted. Impression: Negative examination for trauma
--- NOTE | 2018-08-28 12:46 | Diagnostic Imaging Report ---
Indication: Left wrist pain Findings: 3 views of the left wrist were obtained. No acute fractures, malalignment, erosions or periostitis are identified. Soft tissues are unremarkable. Impression: No acute findings.
== END 2018-08-28 08:15 | disposition home or self-care (01) ==
LOC: EMR 06:40
DX: S60.212A Contusion of left wrist, initial encounter (principal); S50.01XA Contusion of right elbow, initial encounter; W01.0XXA Fall on same level from slipping, tripping and stumbling without subsequent striking against object, initial encounter; Y92.9 Unspecified place or not applicable; E03.9 Hypothyroidism, unspecified; I10 Essential (primary) hypertension; J45.909 Unspecified asthma, uncomplicated; Z88.8 Allergy status to other drugs, medicaments and biological substances
CPT/HCPCS: 71045; 94640; 96372; 99284; J7620

== ENCOUNTER 2018-10-21 06:48 | Emergency (ER) | payer OTHER ==
[~2018-10-21] VITALS: Ht 170.2 cm; Wt 88.5 kg
--- NOTE | 2018-10-21 07:00 | NUR ---
ED Nurse Note: pt walked in c/o flu like sx since saturday, pt reports she's been having cough with yellowish thick phlegm, nasal congestion, difficulty breathing, sorethroat, and earache. hx asthma. pt denies chest pain at this time. pt skin warm and dry, no sx resp distress noted, noted mild wheezing on LS, noted productive cough with yellowish phlegm and nasal congestion. airway intact. will cont monitor. RT contacted for breathing tx.
--- NOTE | 2018-10-21 07:07 | Emergency Room Report ---
History of Present Illness General Chief Complaint: Flu Like Symptoms Source: Patient Present Illness HPI Patient is a 63-year-old female presented after increased cough and difficulty breathing with gradual onset for 3 days. Patient had associated yellow-green sputum. Patient a prior history of Bronchitis. She denies being a smoker. She states she takes Advair as well as Albuterol. Patient reports having intermittent coughing episodes. She reports having improvement with her cough medications. Allergies: Coded Allergies: AMLODIPINE (Verified Allergy, Unknown, 10/21/18) LISINOPRIL (Verified Allergy, Unknown, 10/21/18) Patient History Past Medical History: see triage record Now: No : 4 Para: 3 Reviewed Nursing Documentation: PMH: Agreed; PSxH: Agreed Nursing Documentation-PMH Hx Cardiac Problems: Yes - Hypothyroidism Hx Hypertension: Yes Hx Pacemaker: No Hx Asthma: Yes Hx COPD: No Hx Diabetes: No Hx Cancer: No Hx Gastrointestinal Problems: No Hx Dialysis: No Hx Cerebrovascular Accident: No Hx Seizures: No Review of Systems All Other Systems: negative except mentioned in HPI Physical Exam Vital Signs Date Time Temp Pulse Resp B/P (MAP) Pulse Ox O2 Delivery O2 Flow Rate FiO2 10/21/18 06:51 98.2 84 18 96 Room Air Sp02 EP Interpretation: reviewed, normal General Appearance: normal inspection, well appearing, no apparent distress, alert, GCS 15 Head: atraumatic ENT: normal ENT inspection, hearing grossly normal, normal voice, pharyngeal erythema Neck: normal inspection, full range of motion, supple, no bony tend Respiratory: normal inspection, no respiratory distress, no retraction, speaking full sentences, wheezing Cardiovascular #1: regular rate, rhythm, no edema Gastrointestinal: normal inspection, normal bowel sounds, non tender, soft, no guarding, no hernia Genitourinary: no CVA tenderness Musculoskeletal: normal inspection, back normal, normal range of motion Neurologic: normal inspection, alert, oriented x3, responsive, fruit and vegetable parer III-XII nml as tested, speech normal Psychiatric: normal inspection, judgement/insight normal, mood/affect normal Skin: normal inspection, normal color, no rash Medical Decision Making Diagnostic Impression: Primary Impression: Asthma ER Course Patient presented for cough. Differential diagnosis included but was not limited to bronchitis, pneumonia, pulmonary embolism, pericarditis, asthma, foreign body. Differential diagnosis include is not limited to asthma, pneumonia, lung cancer, tuberculosis among others. Because of complexity of patient's case imaging studies were ordered.Patient was noted to have slight productive cough which she had another occasions at this emergency department in the past. Patient was noted to have some prior history of respiratory illness.Patient given breathing treatment with improvement in air movement. She was given oral steroids. Patient states she felt better. Patient given medications for symptomatic treatment as well as oral antibiotics. Chest x-ray 1 view interpreted by me showed left lung atelectasis without evident infiltrate. Patient appears to have some evidence of productive cough and given the patient's discolored sputum she will be started on oral antibiotics.Patient advised to recheck with her primary care physician in the next few days. She is advised to return if she felt worse. Last Vital Signs Date Time Temp Pulse Resp B/P (MAP) Pulse Ox O2 Delivery O2 Flow Rate FiO2 10/21/18 06:51 98.2 84 18 96 Room Air Status: improved Disposition: HOME, SELF-CARE Condition: Stable Scripts Prednisone* (PREDNISONE*) 20 Mg Tablet 40 MG ORAL DAILY, #8 TAB Prov: George Leary MD 10/21/18 Guaifenesin/Dextromethorphan (Guaifenesin Dm Syrup) 5 Ml Syrup 1 TSP ORAL Q8H, #118 ML 0 Refills Prov: George Leary MD 10/21/18 Azithromycin* (ZITHROMAX*) 250 Mg Tablet 250 MG ORAL DAILY, #6 TAB 0 Refills Take two tables once daily for 1 day, then one tablet once daily for 4 days. Prov: George Leary MD 10/21/18 George Leary MD October 21, 2018 07:07
[2018-10-21] MEDS ORDERED: Albuterol/Ipratropium 3ml neb HHN ONE ×2 (07:15→08:15)
[2018-10-21] MEDS ORDERED: guaiFENesin 100mg/5ml Liq ud ORAL ONE (07:15)
--- NOTE | 2018-10-21 07:15 | NUR ---
ED Nurse Note: report given to LUISA Feliciano and endorsed care.
--- NOTE | 2018-10-21 07:16 | NUR ---
ED Nurse Note: REPORT RECEIVED FROM LUISA NARAYANAN. PT SITTING PEACEFULLY IN BED IN NAD. RR18 @ 96% O2 SATURATION ON RA. RT AT BEDSIDE FOR BREATHING TREATMENT.
[2018-10-21 07:29] VITALS: BP 146/82
[2018-10-21] MEDS ORDERED: GUAIFENESIN DM118 M1 ORAL (08:03)
[2018-10-21] MEDS ORDERED: ZITHROMAX250 MG ORAL (08:03)
[2018-10-21] MEDS ORDERED: PREDNISONE20 MG ORAL (08:03)
--- NOTE | 2018-10-21 08:11 | NUR ---
ED Nurse Note: RT CALLED FOR ANOTHER BREATHING TX.
--- NOTE | 2018-10-21 08:25 | NUR ---
ED Nurse Note: RT AT BEDSIDE.
--- NOTE | 2018-10-21 08:50 | NUR ---
ED Nurse Note: PT LAYING PEACEFULLY IN BED IN NAD. AOX4. PRESCRIPTIONS AND DISCHARGE PAPERWORK EXPLAINED TO PT. PT VERBALIZES UNDERSTANDING AND ALL QUESTIONS ANSWERED. PRESCRIPTIONS AND DISCHARGE PAPERWORK GIVEN TO PT AND ID WRISTBAND REMOVED. PT WALKED OUT OF ER WITH STEADY GAIT AND ALL BELONGINGS.
[2018-10-21 08:53] VITALS: BP 142/78
--- NOTE | 2018-10-21 09:40 | Diagnostic Imaging Report ---
Indication: Dyspnea Comparison: 08/28/2018 A single view chest radiograph was obtained. Findings: Cardiomediastinal appearance is within normal limits for age. The lungs are clear. Pulmonary vascularity is appropriate. The diaphragmatic contour is smooth and costophrenic angles are sharp. No pleural effusions are identified. The bones are unremarkable. Impression: No acute findings
== END 2018-10-21 08:50 | disposition home or self-care (01) ==
LOC: EMR 07:20
DX: J45.909 Unspecified asthma, uncomplicated (principal); Z88.8 Allergy status to other drugs, medicaments and biological substances; I10 Essential (primary) hypertension; E03.9 Hypothyroidism, unspecified
CPT/HCPCS: 71045; 94640; 94664; 99284; J7512; J7620

== ENCOUNTER 2018-11-29 08:38 | Emergency (ER) | payer OTHER ==
[~2018-11-29] VITALS: Ht 170.2 cm; Wt 87.1 kg
[~2018-11-29 08:38] MED LIST changes: +GUAIFENESIN DM118 M1 ORAL; +ZITHROMAX250 MG ORAL
--- NOTE | 2018-11-29 08:54 | NUR ---
ED Nurse Note: Pt walked in from home due to headache, nausea, balance instability, and vision change after a mirror about 3-4 lbs fell on her upper head. Pain 10/10 honorio. No LOC. No swelling noted. AOx4, VSS honorio. Will cont to monitor.
[2018-11-29 08:56] VITALS: BP 166/83
[2018-11-29] MEDS ORDERED: Acetaminophen 500mg (ES) tab PO ONE (09:00)
[2018-11-29] MEDS ORDERED: Methocarbamol 750mg tab ORAL ONE (09:00)
--- NOTE | 2018-11-29 09:12 | NUR ---
ED Nurse Note: Pt down to CT for imaging.
--- NOTE | 2018-11-29 09:26 | NUR ---
ED Nurse Note: Pt back from CT, no sign of acute distress.
--- NOTE | 2018-11-29 09:46 | Diagnostic Imaging Report ---
EXAM: CT Head Without Intravenous Contrast CLINICAL HISTORY: Headache TECHNIQUE: Axial computed tomography images of the head/brain without intravenous contrast. CTDI is 81 mGy and DLP is 1570 mGy-cm. One or more of the following dose reduction techniques were used: automated exposure control, adjustment of the mA and/or kV according to patient size, use of iterative reconstruction technique. Coronal reformatted images were created and reviewed. COMPARISON: No relevant prior studies available. FINDINGS: Brain: Unremarkable. No evidence of acute intracranial hemorrhage. No significant white matter disease. No edema. No mass effect or midline shift. Ventricles: Unremarkable. No ventriculomegaly. Bones/joints: Unremarkable. No depressed skull fracture. Soft tissues: Unremarkable. Sinuses: Unremarkable as visualized. No acute sinusitis. Mastoid air cells: Unremarkable as visualized. No mastoid effusion. IMPRESSION: Unremarkable noncontrast CT of the head/brain.
[2018-11-29 09:49] LABS: APPEARANCE,URINE CLEAR; BILIRUBIN, URINE NEGATIVE (NEGATIVE); GLUCOSE, URINE (UA) NEGATIVE (NEGATIVE); KETONES,URINE 1+ (NEGATIVE); LEUKOCYTE ESTERASE ,URINE 3+ (NEGATIVE); NITRITE,URINE NEGATIVE (NEGATIVE); PH,URINE 6.5 (4.5-8.0); PROTEIN,URINE 2+ (NEGATIVE); UROBILINOGEN,URINE 1 MG/DL (0.0-1.0)
--- NOTE | 2018-11-29 09:50 | Diagnostic Imaging Report ---
EXAM: CT Cervical Spine Without Intravenous Contrast CLINICAL HISTORY: Headache TECHNIQUE: Axial computed tomography images of the cervical spine without intravenous contrast. Coronal and sagittal images were obtained and reviewed. CTDI is 10.94 mGy and DLP is 261.52 mGy-cm. One or more of the following dose reduction techniques were used: automated exposure control, adjustment of the mA and/or kV according to patient size, use of iterative reconstruction technique. COMPARISON: No relevant prior studies available. FINDINGS: Vertebrae: Straightening of the cervical curvature. No visible displaced fracture. Cervical body heights are preserved. The atlantodens interval appears unremarkable. Discs/spinal canal/neural foramina: Mild degenerative disc space loss and anterior osteophyte in the lower cervical spine, most prominent from C4-C7. Soft tissues: Unremarkable. IMPRESSION: 1. No evidence of acute cervical spine fracture or malalignment. 2. Straightening of the cervical curvature may suggest muscle spasm.
[2018-11-29 10:01] LABS: COLOR,URINE YELLOW
[2018-11-29 10:07] VITALS: BP 139/87
[2018-11-29] MEDS ORDERED: ONDANSETRON ODT4 MG BC (10:13)
[2018-11-29] MEDS ORDERED: TYLENOL EXTRA500 MG ORAL (10:13)
[2018-11-29] MEDS ORDERED: CEPHALEXIN500 MG ORAL (10:13)
[2018-11-29] MEDS ORDERED: LIDODERM700 M1 TOPIC (10:13)
[2018-11-29 10:18] VITALS: BP 139/87
--- NOTE | 2018-11-29 10:18 | NUR ---
ER DISCHARGE NOTE: Patient is cleared to be discharged per ERMD, pt is aox4, on room air, with stable vital signs. pt was given dc and prescription instructions, pt was able to verbalize understanding, pt id band removed. pt is able to ambulate with steady gait. pt took all belongings.
--- NOTE | 2018-11-29 11:01 | Emergency Room Report ---
History of Present Illness General Chief Complaint: Headache Source: Patient Present Illness HPI 63-year-old female presents ED for evaluation. Patient walked in complaining of headache and neck pain x7 days. States that a mirror fell from the wall and hit her on the head. States the mirror was fairly heavy. Did not lose consciousness but states she has been having headaches dizziness nausea and neck pain since. Pain is dull, 7 out of 10, nonradiating. Also notes light sensitivity. States she is also been experiencing some chills. And some dysuria for the last 2 days. Afebrile in triage. Denies flank pain. No other aggravating relieving factors. Denies any other associated symptoms Allergies: Coded Allergies: AMLODIPINE (Verified Allergy, Unknown, 10/21/18) LISINOPRIL (Verified Allergy, Unknown, 10/21/18) Patient History Past Medical History: HTN, asthma, other - hypothyroidism Past Surgical History: none Pertinent Family History: none Social History: Denies: smoking, alcohol use, drug use Last Menstrual Period: 2010 Now: No Immunizations: UTD Reviewed Nursing Documentation: PMH: Agreed; PSxH: Agreed Nursing Documentation-PMH Past Medical History: No History, Except For Hx Cardiac Problems: Yes - Hypothyroidism Hx Hypertension: Yes Hx Pacemaker: No Hx Asthma: Yes Hx COPD: No Hx Diabetes: No Hx Cancer: No Hx Gastrointestinal Problems: No Hx Dialysis: No Hx Cerebrovascular Accident: No Hx Seizures: No Review of Systems All Other Systems: negative except mentioned in HPI Physical Exam Vital Signs Date Time Temp Pulse Resp B/P (MAP) Pulse Ox O2 Delivery O2 Flow Rate FiO2 11/29/18 08:44 98.4 69 20 144/93 (110) 95 Room Air Sp02 EP Interpretation: reviewed, normal General Appearance: no apparent distress, alert, GCS 15, non-toxic Head: normocephalic, atraumatic Eyes: bilateral eye normal inspection, bilateral eye PERRL, bilateral eye EOMI , bilateral eye photophobia ENT: hearing grossly normal, normal pharynx, no angioedema, normal voice, TMs + canals normal Neck: full range of motion, supple, supple/symm/no masses, tender lateral, tender midline Respiratory: chest non-tender, lungs clear, normal breath sounds, speaking full sentences Cardiovascular #1: regular rate, rhythm, no edema Cardiovascular #2: 2+ carotid (R), 2+ carotid (L), 2+ radial (R), 2+ radial (L) , 2+ dorsalis pedis (R), 2+ dorsalis pedis (L) Gastrointestinal: normal bowel sounds, non tender, soft, non-distended, no guarding, no rebound Rectal: deferred Genitourinary: normal inspection, no CVA tenderness Musculoskeletal: back normal, gait/station normal, normal range of motion, non- tender Neurologic: alert, oriented x3, responsive, motor strength/tone normal, sensory intact, speech normal Psychiatric: judgement/insight normal, memory normal, mood/affect normal, no suicidal/homicidal ideation Reflexes: 3+ bicep (R), 3+ bicep (L), 3+ tricep (R), 3+ tricep (L), 3+ knee (R) , 3+ knee (L) Skin: normal color, no rash, warm/dry, well hydrated Lymphatic: no adenopathy Medical Decision Making Diagnostic Impression: Primary Impression: UTI (urinary tract infection) Qualified Codes: N39.0 - Urinary tract infection, site not specified; R31.9 - Hematuria, unspecified Additional Impressions: Head injury Qualified Codes: S09.90XA - Unspecified injury of head, initial encounter Neck sprain and strain ER Course Hospital Course 63-year-old F presents ED complaining of headache with N/V s/p falling mirror onto head. Differential diagnoses include: skull fx, intracranial injury, concussion Clinical course Patient placed on stretcher. After initial history and physical I ordered CT head, Cspine and pain medications CT head shows no acute process. CT Cspine shows straightening consistent with spasm. UA + bacteria Clinical findings consistent with post concussive syndrome. Wallace findings with patient. Explained that symptoms should ultimately resolve but if they persist she needs to follow-up with neurology as outpatient. I will provide referrals Diagnosis - UTI, head injury, neck sprain/strain Stable and discharged to home with Rx tylenol, zofran, lidoderm, keflex. Followup with PMD/neurology. Return to ED if symptoms recur or worsen Labs Test 11/29/18 09:40 Urine Color Yellow Urine Appearance Clear Urine pH 6.5 (4.5-8.0) Urine Specific [place] 1.015 (1.005-1.035) Urine Protein 2+ (NEGATIVE) Urine Glucose (UA) Negative (NEGATIVE) Urine Ketones 1+ (NEGATIVE) Urine Blood 3+ (NEGATIVE) Urine Nitrite Negative (NEGATIVE) Urine Bilirubin Negative (NEGATIVE) Urine Urobilinogen 1 MG/DL (0.0-1.0) Urine Leukocyte Esterase 3+ (NEGATIVE) Urine RBC 2-4 /HPF (0 - 2) Urine WBC 10-15 /HPF (0 - 2) Urine Squamous Epithelial Cells Few /LPF (NONE/OCC) Urine Bacteria Few /HPF (NONE) CT/MRI/US Diagnostic Results CT/MRI/US Diagnostic Results #1: Imaging Test Ordered: CT head Impression no acute process CT/MRI/US Diagnostic Results #2: Imaging Test Ordered: CT C spine Impression no acute fx. straightening noted Last Vital Signs Date Time Temp Pulse Resp B/P (MAP) Pulse Ox O2 Delivery O2 Flow Rate FiO2 11/29/18 10:18 98.4 79 20 139/87 97 Room Air Status: improved Disposition: HOME, SELF-CARE Condition: Stable Scripts Cephalexin* (KEFLEX*) 500 Mg Capsule 500 MG ORAL EVERY 6 HOURS for 7 Days, CAP Prov: Vadim Padron MD 11/29/18 Lidocaine (Lidoderm) 1 Each Adh..patch 1 PATCH TOPIC DAILY, #7 PATCH 0 Refills Patch(es) may remain in place for up to 12 hours in any 24-hour period. Prov: Vadim Padron MD 11/29/18 Ondansetron Odt* (ZOFRAN ODT*) 4 Mg Tab.rapdis 4 MG BC EVERY 6 HOURS PRN for Nausea & Vomiting, #20 TAB 0 Refills Prov: Vadim Padron MD 11/29/18 Acetaminophen* (TYLENOL EXTRA STRENGTH*) 500 Mg Tablet 500 MG ORAL Q8H PRN for Prn Headache/Temp > 101, #30 TAB 0 Refills Prov: Vadim Padron MD 11/29/18 Referrals: Jaleel Hinkle MD Patient Instructions: Post-Concussion Syndrome, [id number] Vadim Padron MD Nov 29, 2018 11:00
== END 2018-11-29 10:18 | disposition home or self-care (01) ==
LOC: EMR 09:12
DX: S09.90XA Unspecified injury of head, initial encounter (principal); S16.1XXA Strain of muscle, fascia and tendon at neck level, initial encounter; S13.9XXA Sprain of joints and ligaments of unspecified parts of neck, initial encounter; N39.0 Urinary tract infection, site not specified; J45.909 Unspecified asthma, uncomplicated; I10 Essential (primary) hypertension; E03.9 Hypothyroidism, unspecified; Z88.8 Allergy status to other drugs, medicaments and biological substances; W20.8XXA Other cause of strike by thrown, projected or falling object, initial encounter; Y92.9 Unspecified place or not applicable
CPT/HCPCS: 70450; 72125; 81001; 87086; 99284

== ENCOUNTER 2019-02-23 14:09 | Emergency (ER) | payer OTHER ==
[~2019-02-23] VITALS: Ht 170.2 cm; Wt 86.6 kg
[~2019-02-23 14:09] MED LIST changes: +CEPHALEXIN500 MG ORAL; +LIDODERM700 M1 TOPIC; +ONDANSETRON ODT4 MG BC
[2019-02-23] MEDS ORDERED: HYZAAR 100-12.1 EACH ORAL (14:23)
--- NOTE | 2019-02-23 14:25 | NUR ---
ED Nurse Note: patient walked into ED from home c/o rash on the sternum area started last night. patient reports it's getting worse today. patient denies any Chest pain or dyspnea at this time. patient is alert awake x4 ambulatory steady gait, breathing unlabored and even.
--- NOTE | 2019-02-23 14:37 | Emergency Room Report ---
History of Present Illness General Chief Complaint: Skin Rash/Abscess Source: Patient Present Illness HPI Patient is a 63-year-old female who presents after increased skin rash to the center of her chest. Patient reports having onset of symptoms since this morning. She reports having recent increased sun exposure to that area. She reports being on the sun for several hours watching a softball game. She denies any fever. She denies any itchiness to the area. She had not been having any other symptoms. She denies any recent trauma or illness. Allergies: Coded Allergies: AMLODIPINE (Verified Allergy, Unknown, 10/21/18) LISINOPRIL (Verified Allergy, Unknown, 10/21/18) Patient History Past Medical History: see triage record Last Menstrual Period: na Now: No Reviewed Nursing Documentation: PMH: Agreed; PSxH: Agreed Nursing Documentation-PMH Past Medical History: No History, Except For Hx Cardiac Problems: Yes - Hypothyroidism Hx Hypertension: Yes Hx Pacemaker: No Hx Asthma: Yes Hx COPD: No Hx Diabetes: No Hx Cancer: No Hx Gastrointestinal Problems: No Hx Dialysis: No Hx Cerebrovascular Accident: No Hx Seizures: No Review of Systems All Other Systems: negative except mentioned in HPI Physical Exam Vital Signs Date Time Temp Pulse Resp B/P (MAP) Pulse Ox O2 Delivery O2 Flow Rate FiO2 02/23/19 14:16 98.4 64 20 166/71 (102) 97 Room Air General Appearance: well appearing, no apparent distress, alert, GCS 15 Head: normocephalic, atraumatic ENT: hearing grossly normal, normal voice Neck: full range of motion, supple Respiratory: lungs clear, normal breath sounds, no respiratory distress, speaking full sentences Cardiovascular #1: normal inspection Gastrointestinal: normal inspection, non tender, soft Musculoskeletal: normal inspection, digits/nails normal Neurologic: normal inspection, alert, oriented x3, normal gait Psychiatric: mood/affect normal Skin: warm/dry, other - skin rash to chest area exposed skin only Medical Decision Making Diagnostic Impression: Primary Impression: Skin rash ER Course Present for skin rash. Differential diagnosis include was not limited to sunburn, contact dermatitis, photosensitivity reaction, shingles among others. Patient has a benign exam and does not appear to require any imaging or laboratory testing at this time. There does not appear to be any active infection. Patient be discharged home. She will be advised to follow-up with primary care physician for recheck. Last Vital Signs Date Time Temp Pulse Resp B/P (MAP) Pulse Ox O2 Delivery O2 Flow Rate FiO2 02/23/19 14:16 98.4 64 20 166/71 (102) 97 Room Air Status: improved Disposition: HOME, SELF-CARE Condition: Stable Scripts Hydrocortisone 2% Cream (ANTI-ITCH 2% CREAM) Y Cr 28 GM TP DAILY, #30 GM Prov: George Leary MD 02/23/19 George Leary MD Feb 23, 2019 14:37
[2019-02-23] MEDS ORDERED: ANTI-ITCH28 G1 TP (14:38)
--- NOTE | 2019-02-23 14:40 | NUR ---
ER DISCHARGE NOTE: Patient is cleared to be discharged per RIDGE FRIAS, pt is aox4, on room air, with stable vital signs. pt was given dc and prescription instructions, pt was able to verbalize understanding, pt id band removed without complications. pt is able to ambulate with steady gait. pt took all belongings. Addendum: 02/23/19 at 1455 by REANNAO Patient is cleared to be discharged per ISAK ABEL, pt is aox4, on room air, with stable vital signs. pt was given dc and prescription instructions, pt was able to verbalize understanding, pt id band removed without complications. pt is able to ambulate with steady gait. pt took all belongings.
[2019-02-23 14:54] VITALS: BP 166/71
[2019-02-23 14:55] VITALS: BP 166/71
== END 2019-02-23 14:40 | disposition home or self-care (01) ==
LOC: EMR 14:30
DX: R21 Rash and other nonspecific skin eruption (principal); E03.9 Hypothyroidism, unspecified; I10 Essential (primary) hypertension; J45.909 Unspecified asthma, uncomplicated; Z88.8 Allergy status to other drugs, medicaments and biological substances
CPT/HCPCS: 99282

== ENCOUNTER 2020-01-12 07:49 | Emergency (ER) | payer OTHER ==
[~2020-01-12] VITALS: Ht 170.2 cm; Wt 86.2 kg
[~2020-01-12 07:49] MED LIST changes: +ANTI-ITCH28 G1 TP; +BENADRYL25 MG ORAL; +CALAMINE LOTIO177 ML TP; +HYZAAR 100-12.1 EACH ORAL; +MEDROL DOSEPAK4 MG ORAL; +RANITIDINE HCL150 MG ORAL
[2020-01-12] MEDS ORDERED: ABILIFY2 MG ORAL (08:01)
[2020-01-12 08:04] VITALS: BP 146/81
--- NOTE | 2020-01-12 08:28 | Emergency Room Report ---
History of Present Illness General Chief Complaint: Skin Rash/Abscess Source: Patient Present Illness HPI Patient presents complaining about pain and itching right elbow. Began yesterday. She was awakened by pain during the night. Also her right hand was a little bit numb but she was able to shake that out. She has had problems with skin infections in the past. She is acting early on with this. She complains the pain is 8/10 at this time and slightly aching. Patient had sweats last night but denies any fever. No chills, sore throat, chest pain, palpitations, nausea, vomiting, diarrhea, dysuria, abdominal pain, shortness of breath, depression, anxiety, visual changes, dizziness, headache. Her last tetanus was less than 10 years ago. 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 COVID-19 Screening: Negative COVID-19 COVID-19 Testing Source: SOCIETY REPORTER Patient History Past Medical History: see triage record Social History: Denies: smoking Social History Narrative From home Reviewed Nursing Documentation: PMH: Agreed; PSxH: Agreed Nursing Documentation-PMH Past Medical History: No History, Except For Hx Cardiac Problems: Yes - Hypothyroidism Hx Hypertension: Yes Hx Pacemaker: No Hx Asthma: Yes Hx COPD: No Hx Diabetes: No Hx Cancer: No Hx Gastrointestinal Problems: No Hx Dialysis: No History Of Psychiatric Problem: Yes - Depression Hx Cerebrovascular Accident: No Hx Seizures: No Review of Systems All Other Systems: negative except mentioned in HPI Physical Exam Vital Signs Date Time Temp Pulse Resp B/P (MAP) Pulse Ox O2 Delivery O2 Flow Rate FiO2 01/12/20 07:55 97.0 95 14 141/87 (105) 96 Room Air Sp02 EP Interpretation: reviewed, normal General Appearance: well appearing, no apparent distress, GCS 15 Head: normocephalic Eyes: bilateral eye normal inspection, bilateral eye PERRL, bilateral eye EOMI ENT: other - Wearing a mask Cardiovascular #1: regular rate, rhythm Gastrointestinal: normal inspection Musculoskeletal: gait/station normal, normal range of motion - Elbow and hand Neurologic: alert, grossly normal Psychiatric: mood/affect normal Skin: normal color, warm/dry, other - Raised nodule with a possible pustular center without fluctuance right lateral elbow Medical Decision Making Diagnostic Impression: Primary Impression: Insect bite Qualified Codes: S50.361A - Insect bite (nonvenomous) of right elbow, initial encounter; W57.XXXA - Bitten or stung by nonvenomous insect and other nonvenomous arthropods, initial encounter Additional Impression: Cellulitis Qualified Codes: L03.113 - Cellulitis of right upper limb ER Course Patient presents with itching and discomfort with the lesion right elbow. Differential includes insect bite, cellulitis amongst others. Antibiotics are indicated. Tetanus is up-to-date. Patient will also be treated for pain. Discussed treatment plan with patient. Patient stable for outpatient observation and treatment. Last Vital Signs Date Time Temp Pulse Resp B/P (MAP) Pulse Ox O2 Delivery O2 Flow Rate FiO2 01/12/20 08:40 97.9 81 18 139/84 98 Room Air Status: improved Disposition: HOME, SELF-CARE Condition: Improved Scripts Hydrocortisone/Aloe (Hydrocortisone/Aloe 1% Cream*) Y Cr 1 APPLIC TOPIC BID PRN for Itching, #15 GM Prov: Gurpreet Washburn MD 01/12/20 Bacitracin (Bacitracin) 28.4 Gm Oint...g. 1 APPLIC TOPIC BID, #20 GM Prov: Gurpreet Washburn MD 01/12/20 Trimethoprim/Sulfamethoxazole 160/800* (BACTRIM DS TABLET*) 1 Each Tablet 1 TAB ORAL Q12H, #14 TAB 0 Refills Prov: Gurpreet Washburn MD 01/12/20 Gurpreet Washburn MD Jan 12, 2020 08:28
[2020-01-12] MEDS ORDERED: Bactrim-DS 1 tab ORAL ONE (08:30)
[2020-01-12] MEDS ORDERED: Bacitracin Oint UD TOPIC ONE (08:30)
[2020-01-12] MEDS ORDERED: BACITRACIN15 GM TOPIC (08:31)
[2020-01-12] MEDS ORDERED: HYDROCORTISONE-30 GM TOPIC (08:31)
[2020-01-12] MEDS ORDERED: BACTRIM DS TAB1 EAC1 ORAL (08:31)
[2020-01-12 08:40] VITALS: BP 139/84
== END 2020-01-12 08:40 | disposition home or self-care (01) ==
LOC: EMR 08:40
DX: S50.361A Insect bite (nonvenomous) of right elbow, initial encounter (principal); W57.XXXA Bitten or stung by nonvenomous insect and other nonvenomous arthropods, initial encounter; L03.113 Cellulitis of right upper limb; E03.9 Hypothyroidism, unspecified; I10 Essential (primary) hypertension; F32.9 Major depressive disorder, single episode, unspecified; Z88.8 Allergy status to other drugs, medicaments and biological substances
CPT/HCPCS: 99282

== ENCOUNTER 2020-02-06 19:43 | Emergency (ER) | payer OTHER ==
[~2020-02-06] VITALS: Ht 175.3 cm; Wt 72.6 kg
[~2020-02-06 19:43] MED LIST changes: +ABILIFY2 MG ORAL; +BACITRACIN15 GM TOPIC; +HYDROCORTISONE-30 GM TOPIC
[2020-02-06 20:00] VITALS: BP 143/84
--- NOTE | 2020-02-06 20:14 | Emergency Room Report ---
History of Present Illness General Chief Complaint: Animal Bite Present Illness HPI 64-year-old female with no symptom past medical history here planing of a painful rash. Patient reports that she saw a brown recluse spider yesterday and she has experienced spider bite, most similar. Not too long ago for similar bites on the arm less than a month ago. Patient denies any fever and chills, nausea vomiting, headache and dizziness. Denies any facial numbness. Denies any confusion. Is a little lymphadenopathy in the same side. Patient speaking in full sentence. Denies anaphylaxis, speaking in full sentence, denies any bleeding issues reports that on her way here she had to use her inhaler as she was scared and also felt a little short of breath however no longer feels short of breath. Denies any chest pain, cough and congestion. Resting comfortably with stable vital signs. Allergies: Coded Allergies: AMLODIPINE (Verified Allergy, Unknown, 10/21/18) LISINOPRIL (Verified Allergy, Unknown, 10/21/18) COVID-19 Screening Contact w/high risk pt: No Experienced COVID-19 symptoms?: No COVID-19 Testing performed HOME CARE CHAPLAIN: No Patient History Past Medical History: see triage record Past Surgical History: none Pertinent Family History: none Now: No Immunizations: UTD Reviewed Nursing Documentation: PMH: Agreed; PSxH: Agreed Nursing Documentation-PMH Hx Cardiac Problems: Yes - Hypothyroidism Hx Hypertension: Yes Hx Pacemaker: No Hx Asthma: Yes Hx COPD: No Hx Diabetes: No Hx Cancer: No Hx Gastrointestinal Problems: No Hx Dialysis: No Hx Cerebrovascular Accident: No Hx Seizures: No Review of Systems All Other Systems: negative except mentioned in HPI Physical Exam Vital Signs Date Time Temp Pulse Resp B/P (MAP) Pulse Ox O2 Delivery O2 Flow Rate FiO2 02/06/20 19:54 98.4 105 16 143/84 (103) 98 Room Air Sp02 EP Interpretation: reviewed, normal General Appearance: no apparent distress, alert, GCS 15, non-toxic Head: normocephalic, atraumatic Eyes: bilateral eye normal inspection, bilateral eye PERRL ENT: hearing grossly normal, normal pharynx, no angioedema, normal voice, other - no anaphylaxis, clear airway, no abscess noted Neck: full range of motion, supple/symm/no masses Respiratory: chest non-tender, lungs clear, normal breath sounds, no rhonchi, no wheezing, speaking full sentences Cardiovascular #1: regular rate, rhythm, no edema, no murmur Gastrointestinal: normal bowel sounds, non tender, soft, non-distended, no guarding, no rebound Rectal: deferred Musculoskeletal: back normal Neurologic: alert, motor strength/tone normal, oriented x3, sensory intact, responsive, speech normal Psychiatric: judgement/insight normal, memory normal, mood/affect normal, no suicidal/homicidal ideation Skin: other - infected insect bite right lateral neck Lymphatic: adenopathy - anteriorposterior lymphadenopathy right side Medical Decision Making PA Attestation All diagnosis and treatment plans were discussed and reviewed by my supervising physician Dr. Rodriguez Diagnostic Impression: Primary Impression: Infected insect bite ER Course 64-year-old female with no symptom past medical history here planing of a painful rash. Patient reports that she saw a brown recluse spider yesterday and she has experienced spider bite, most similar. Not too long ago for similar bites on the arm less than a month ago. Patient denies any fever and chills, nausea vomiting, headache and dizziness. Denies any facial numbness. Denies any confusion. Is a little lymphadenopathy in the same side. Patient speaking in full sentence. Denies anaphylaxis, speaking in full sentence, denies any bleeding issues reports that on her way here she had to use her inhaler as she was scared and also felt a little short of breath however no longer feels short of breath. Denies any chest pain, cough and congestion. Resting comfortably with stable vital signs. Ddx considered but are not limited to : Anaphylaxis, angioedema, infected insect bite, cellulitis, superficial infection, abscess Vital signs: are WNL, pt. is afebrile H&PE are most consistent with: Infected insect bite ORDERS: Keflex, prednisone, hydrocortisone cream, EpiPen for possible anaphylaxis ED INTERVENTIONS: None required at this time. DISCHARGE: At this time pt. is stable for d/c to home. Will provide printed patient care instructions, and any necessary prescriptions. Care plan and follow up instructions have been discussed with the patient prior to discharge. Patient take medication as directed, follow primary care provider, if worsening symptoms return to the emergency room Last Vital Signs Date Time Temp Pulse Resp B/P (MAP) Pulse Ox O2 Delivery O2 Flow Rate FiO2 02/06/20 19:54 98.4 105 16 143/84 (308) 98 Room Air Disposition: HOME, SELF-CARE Condition: Stable Patient Instructions: Insect Bite, [id number] Additional Instructions: Patient take medication as directed, follow primary care provider, if worsening symptoms return to the emergency room Yesica Dang Feb 06, 2020 20:14
[2020-02-06] MEDS ORDERED: Cephalexin 500mg cap ORAL ONE (20:15)
[2020-02-06] MEDS ORDERED: EPIPEN 2-P0.3 MG/0.3 IM (20:16)
[2020-02-06] MEDS ORDERED: CEPHALEXIN500 MG ORAL (20:16)
[2020-02-06] MEDS ORDERED: HYDROCORTISONE-30 GM TOPIC (20:16)
[2020-02-06] MEDS ORDERED: PREDNISONE20 MG ORAL (20:16)
[2020-02-06 20:50] VITALS: BP 138/88
== END 2020-02-06 20:50 | disposition home or self-care (01) ==
LOC: EMR 20:21
DX: S10.96XA Insect bite of unspecified part of neck, initial encounter (principal); L08.9 Local infection of the skin and subcutaneous tissue, unspecified; W57.XXXA Bitten or stung by nonvenomous insect and other nonvenomous arthropods, initial encounter; Y92.9 Unspecified place or not applicable; E03.9 Hypothyroidism, unspecified; I10 Essential (primary) hypertension
CPT/HCPCS: 99283; J1100